=== PATIENT | female | born 1970 | race Two or more races ===

== ENCOUNTER 2024-07-06 18:39 | Inpatient (IN) | payer OTHER, SELFPAY ==
[2024-07-06 18:41] VITALS: BMI 46.7
[2024-07-06 20:02] VITALS: BP 151/90; PULSE 89; RESP 20; TEMP 36.9; O2SAT 98
--- NOTE | 2024-07-06 20:17 | XR_ITS ---
Examination: CT abdomen with intravenous contrast CT pelvis with intravenous contrast 2-D coronal reconstructions 2-D sagittal reconstructions Date and time of exam:July 06, 2024 10:40 PM INDICATIONS: Epigastric pain today. CTDI: vol (mGy) 17.1 DLP: (mGycm) 1020 Technique: Multiple axial sections of the abdomen and pelvis have been obtained. 64 slice high-resolution scanner used. 3 mm axial sections have been obtained, post intravenous injection 60 cc [id number] 2-D sagittal, coronal reconstructions obtained. Low dose protocols were performed. One or more of the following dose reduction techniques were used; automated exposure control, adjustment of the mA and/or KV according to patient size, use of iterative reconstruction technique. Findings: No focal liver or splenic lesion No gallstones No pancreatic or adrenal mass No renal or ureteral calculi Multiple fluid distended small bowel loops with small bowel in a 7 cm umbilical hernia defect which appears partially incarcerated Normal appendix Bilateral intact IMPRESSION: Small bowel obstruction secondary to small bowel in a umbilical hernia defect which appears partially incarcerated
--- NOTE | 2024-07-06 20:18 | PD.EDRME ---
Rapid Medical Screening Exam [facility] Arrival date/time: 07/06/24 18:39 53F with history of HTN, DM and incarcerated hernia repair presents to ED with 2 days of epigastric pain and N/V. Pain starts after she eats. Chief Complaint: Abdominal Pain Vital signs: Vital Signs Temperature 98.4 F 07/06/24 20:02 Pulse Rate 89 07/06/24 20:02 Respiratory Rate 20 07/06/24 20:02 Blood Pressure 151/90 H 07/06/24 20:02 Pulse Oximetry (%) 98 07/06/24 20:02 Oxygen Delivery Method Room Air 07/06/24 20:02
[2024-07-06 20:43] LABS: Collection Type, Urine Clean Catch
[2024-07-06 20:44] LABS: Lactate (Lactic Acid) 1.8 mMol/L (0.4-2.0)
[2024-07-06 20:50] LABS: Basophils % (Auto) 0 % (0-2.5); Eosinophils # (Auto) 0.2 Thou/mm3 (0.0-0.5); Eosinophils % (Auto) 3 % (0-10); Hematocrit 45.5 % (36.0-46.0); Hemoglobin 15.1 g/dL (12.0-16.0); Immature Granulocytes % (Auto) 0 % (0-0); Immature Granulocytes Auto 0.02 Thou/mm3 (0.00-0.00); Lymphocytes # (Auto) 2.4 Thou/mm3 (1.0-4.8); Lymphocytes % (Auto) 31 % (10-50); Mean Corpuscular HGB Conc 33.2 g/dl (31.0-37.0); Mean Corpuscular Hemoglobin 28.5 pg (25.0-35.0); Mean Corpuscular Volume 86 fL (80-100); Monocytes # (Auto) 0.4 Thou/mm3 (0.0-0.8); Monocytes % (Auto) 5 % (0-12); Neutrophils # (Auto) 4.8 Thou/mm3 (1.8-7.7); Neutrophils % (Auto) 61 % (37-80); Nucleated Red Blood Cell % 0 /100 WBC (0); Platelet Count 317 Thou/mm3 (140-440); RDW Standard Deviation 39.3 fL (36.4-46.3); White Blood Count 7.8 Thou/mm3 (3.6-11.0)
[2024-07-06] MEDS: FAMOTIDINE 20 MG TABLET 40 MG PO (20:54)
[2024-07-06] MEDS: ONDANSETRON ODT 4 MG TABRAP PO (20:54)
[2024-07-06] MEDS: MG HYD/AL HYD/SIME (Maalox Reg) SUSP 30 ML UDC PO (20:55)
[2024-07-06 21:06] LABS: Bilirubin,Urine Negative (Negative); Blood,Urine Negative (Negative); Clarity,Urine Clear (Clear/Hazy); Color,Urine Lt-Yellow (Lt Yel-Yel); Glucose, Urine 4+ (Negative); Ketones,Urine Negative (Negative); Leukocyte Esterase,Urine Negative (Negative); Nitrite,Urine Negative (Negative); Protein,Urine Trace (Neg - Trace); RBC,Urine 3 /hpf (0-3); Squamous Epithelial Cell,Urine 7 /hpf (0-5); Urobilinogen,Urine Negative mg/dL (0.0-1.0); WBC,Urine 1 /hpf (0-5)
[2024-07-06 22:24] LABS: Alanine Aminotransferase 19 U/L (10-49); Albumin, Serum 4.4 gm/dL (3.5-5.0); Albumin/Globulin Ratio 1.5 (1.2-2.2); Alkaline Phosphatase 99 U/L (46-116); Anion Gap 14 (7-16); Aspartate Amino Transferase 11 U/L (0-34); BUN/Creatinine Ratio 17 Ratio (12-20); Bilirubin,Total 0.4 mg/dL (0.3-1.2); Blood Urea Nitrogen 12 mg/dL (9-23); Calcium 9.2 mg/dL (8.3-10.6); Calcium (Corrected) 9.2 mg/dL (8.5-10.1); Carbon Dioxide 25.4 mMol/L (20.0-31.0); Chloride 101 mMol/L (98-107); Creatinine (Component) 0.7 mg/dL (0.6-1.3); Glucose 207 mg/dL (74-106); Lipase 39 U/L (12-53); Osmolality,Calculated 285 (275-295); Sodium 140 mMol/L (136-145); Total Protein 7.4 gm/dL (5.7-8.2); eGFR > 60 See Note
[2024-07-07] VITALS (8 sets, daily range): BP systolic 125–170; BP diastolic 73–102; PULSE 70–84; RESP 15–20; TEMP 36.1–37.1; O2SAT 93–97; BMI 46.7
[2024-07-07] MEDS: fentaNYL CIT INJ 50 mCg/ML AMP 2ML 100 MCG IVP (00:34)
--- NOTE | 2024-07-07 02:09 | PC.NURSE ---
Pt to room 6 at this time from E; assumed care.
--- NOTE | 2024-07-07 02:19 | PD.EDABDPN ---
ED Abdominal Pain RME/HPI General Chief Complaint: Abdominal Pain Stated complaint: abdominal pain, NV Arrival date/time: 07/06/24 18:39 Source: patient Mode of arrival: ambulatory Limitations: no limitations RME / HPI RME / HPI narrative: 07/06/24 18:39 53F with history of HTN, DM and incarcerated hernia repair presents to ED with 2 days of epigastric pain and N/V. Pain starts after she eats. Dr. Hsieh?s Main ED Evaluation: 53-year-old female with a past medical history of type 2 diabetes mellitus, hypertension, hyperlipidemia, and prior incarcerated hernia repair secondary to small bowel obstruction approximately two years ago at [facility], presents with worsening epigastric pain. She reports associated nausea and one episode of non-bilious, non-bloody emesis both yesterday and earlier today. Pain is exacerbated after eating. She seeks evaluation due to concern for possible recurrence related to her prior hernia repair. Patient states she has not followed up with the surgeon from her previous surgery. Related Data Home Medications ?Medication ?Instructions ?Recorded ?Confirmed allopurinol 100 mg tablet 100 mg PO DAILY Gout ##0 10/31/11 potassium chloride 10 mEq 10 meq PO QDAY ##0 10/31/11 tablet,extended release(part/cryst) (Klor-Con M) simvastatin 20 mg tablet 20 mg PO HS CHOLESTROL ##0 10/31/11 METFORMIN HCL (METFORMIN HCL ER) 500 mg PO BIDAC DIABETES ##0 06/14/13 baclofen 10 mg tablet 10 mg PO TID #0 tabs 06/14/13 docusate sodium 100 mg capsule 100 mg PO BID CONSTIPATION ##0 06/14/13 (Doc-Q-Lace) duloxetine 30 mg capsule,delayed 30 mg PO BID #0 caps 06/14/13 release (Cymbalta) albuterol sulfate 90 mcg/actuation 2 puff inhalation Q6HR PRN 09/29/13 aerosol inhaler (Ventolin HFA) SHORTNESS OF BREATH OR WHEEZE #0 puffs beclomethasone dipropionate 80 1 puff inhalation BID ASTHMA #0 03/16/14 mcg/actuation aerosol inhaler puffs (Qvar) furosemide 20 mg tablet (Lasix) 20 mg PO QDAY WATER #0 tabs 12/04/14 insulin lispro 100 unit/mL 100 unit subcut TID DIABETES #0 03/16/14 subcutaneous solution (Humalog vials U-100 Insulin) Fluticasone/Salmeterol DISKUS * 1 puff inhalation BID ASTHMA #0 07/02/14 (ADVAIR DISKUS 500/50 *) puffs dimethyl fumarate 240 mg 240 mg PO BID ##0 07/02/14 capsule,delayed release (Tecfidera) OXYGEN ##0 09/01/14 lisinopril 20 mg tablet 20 mg PO QDAY High Blood Pressure 09/01/14 #0 tabs Previous Rx's ?Medication ?Instructions ?Recorded diclofenac sodium 50 mg 50 mg PO TIDWM ##90 07/06/14 tablet,delayed release insulin glargine 100 unit/mL 50 unit (0.5 mL) subcut HS 07/06/14 subcutaneous solution (Lantus DIABETES #3 vials U-100 Insulin) montelukast 10 mg tablet 10 mg PO HS #30 tabs 07/06/14 (Singulair) ropinirole 1 mg tablet (Requip) 1 mg PO HS #30 tabs 07/06/14 PROMETHAZINE/CODEINE (Phenergan 1 - 2 tsp PO q4-6h prn ##180 09/01/14 W/Cod Syrup) ACETAMINOPHEN (Tylenol Tab) 650 mg PO Q4HR PRN PAIN OR FEVER > 09/22/14 101 #100 tabs Insulin Syringe * packet ##1 09/22/14 aspirin 325 mg tablet 325 mg PO HS #30 tabs 09/22/14 insulin glargine 100 unit/mL 10 unit (0.1 mL) subcut QAM #4 09/22/14 subcutaneous solution (Lantus vials U-100 Insulin) insulin glargine 100 unit/mL 55 unit (0.55 mL) subcut HS #4 09/22/14 subcutaneous solution (Lantus vials U-100 Insulin) insulin regular human 100 unit/mL 0 unit (0 mL) subcut ACHS #4 units 09/22/14 injection solution (Novolin R Regular U-100 Insulin) Allergies Allergy/AdvReac Type Severity Reaction Status Date / Time morphine Allergy Mild RASH Verified 09/01/14 16:06 FIG TREE AdvReac Severe Swelling Uncoded 09/01/14 16:06 Review of Systems Review of Systems Systems Reviewed: All systems reviewed, normal except as documented Past Medical History Past Medical History CARDIAC: Negative Cardiac Disorders RESPIRATORY: Positive Asthma GENITOURINARY: Negative Renal Disease ENDOCRINE: Positive Diabetes Mellitus Type 2 HEMATOLOGIC: Negative Sickle Cell Disease Social History SMOKING STATUS: Never smoker ED Exam General Limitations: Present no limitations General appearance: Present alert and in no apparent distress Head Head exam: Present atraumatic Eye Eye exam: Present normal appearance, PERRL and EOMI ENT ENT exam: Present normal exam, normal oropharynx and mucous membranes moist Neck Neck exam: Present normal inspection, full ROM and trachea midline Chest Chest inspection: Present normal inspection and symmetric chest wall rise Respiratory Respiratory exam: Present normal lung sounds bilaterally Cardiovascular Cardiovascular exam: Present regular rate, normal rhythm and normal heart sounds Abdominal Exam Abdominal exam: Present soft and normal bowel sounds Extremities Exam Extremities exam: Present normal inspection and full ROM Back Exam Back exam: Present normal inspection and full ROM Neurological Exam Neurological exam: Present alert, oriented X3 and CN II-XII intact Psychiatric Psychiatric exam: Present normal affect and normal mood Skin Skin exam: Present warm, dry, intact and normal color Course Quality Measures none Orders Category Date Time Status CT Screening NOW Care 07/06/24 20:18 Active Insert IV NOW Care 07/06/24 20:17 Active NPO NOW Care 07/07/24 00:24 Active Diet NPO (NOW) Diet 07/07/24 00:[address] abdomen pelvis w con Stat Exams 07/06/24 20:17 Completed CBC Stat Lab 07/06/24 20:28 Completed CMP [Comprehensive Metabolic Panel] Stat Lab 07/06/24 20:28 Completed Lactate (Lactic Acid) Stat Lab 07/06/24 20:28 Completed Lipase Stat Lab 07/06/24 20:28 Completed UA [Urinalysis] Stat Lab 07/06/24 20:39 Completed Famotidine [Pepcid] Med 07/06/24 20:18 Discontinued 40 mg PO X1 ONE Ondansetron Odt [Zofran Odt] Med 07/06/24 20:18 Discontinued 4 mg PO X1 ONE fentaNYL INJ [Sublimaze Inj] Med 07/07/24 00:24 Discontinued 100 mcg IVP X1 ONE fentaNYL INJ [Sublimaze Inj] Med 07/07/24 03:27 Discontinued 100 mcg IVP X1 ONE mg Hyd/Al Hyd/John Susp [Maalox Susp] Med 07/06/24 20:18 Discontinued 30 ml PO X1 ONE Vital Signs Vital signs: Vital Signs Temperature 98.4 F 07/06/24 20:02 Pulse Rate 89 07/06/24 20:02 Respiratory Rate 20 07/06/24 20:02 Blood Pressure 151/90 H 07/06/24 20:02 Pulse Oximetry (%) 98 07/06/24 20:02 Oxygen Delivery Method Room Air 07/06/24 20:02 Abdominal Pain MDM MDM Narrative MDM Narrative:: 0221 Dr. Glaser, general surgeon, made aware of the patient?s HPI, PMHx, lab and/or radiology results. Discussed treatment plan. Will attempt to reduce hernia. 0233 Case d/w hospitalist. Will attempt to reduce hernia. 0300 Hernia reduced. Case d/w hospitalist who accepts patient for admission. Scribe Attestation: I, Brendan Saul, am scribing for and in the presence of Dr. Hsieh. Provider Notation: Although this document has been carefully reviewed, there may still be some phonetic and other typographical errors. These errors are purely grammatical due to imperfections in the software program and should not be construed in any way to compromise the substance of the patient's medical care during this visit. Patient data External records reviewed:: [facility] previous records Clinical information provided by:: patient Social determinants that could affect healthcare access:: none Patient has the following chronic illnesses:: HLD, HTN, DM2, prior incarcerated hernia repair secondary to small bowel obstruction How is presenting disease/condition affected by chronic disease/condition?: uneffected by Evaluation data The following diagnostics were reviewed and interpreted by me:: lab results and radiology exam(s) Lab and/or radiology exams considered but not ordered:: na Interpretation Summary: Examination: CT abdomen with intravenous contrast CT pelvis with intravenous contrast Date and time of exam:July 06, 2024 10:40 PM INDICATIONS: Epigastric pain today. Findings: No focal liver or splenic lesion No gallstones No pancreatic or adrenal mass No renal or ureteral calculi Multiple fluid distended small bowel loops with small bowel in a 7 cm umbilical hernia defect which appears partially incarcerated Normal appendix Bilateral intact IMPRESSION: Small bowel obstruction secondary to small bowel in a umbilical hernia defect which appears partially incarcerated Dictated By: Delvin Hadley MD Medications / Prescriptions Medications or Prescriptions considered but not ordered:: na Medication administrations:: Medication Administration History Dextrose (Dextrose 50%-Water Inj 50 Ml Syringe) 25 ml IV Q15MIN PRN PRN Reason: BG 50-70 responsive npo pt Stop: 08/06/24 04:03 Dextrose (Dextrose 50%-Water Inj 50 Ml Syringe) 50 ml IV Q15MIN PRN PRN Reason: BG <50 OR BG <70 & pt unresponsive Stop: 08/06/24 04:03 Glucagon (Glucagon Inj 1 Mg Vial) 1 mg IM Q15MIN PRN PRN Reason: BG <70, and no IV access Hydromorphone HCl (Hydromorphone Inj 2 Mg/Ml Vial) 1 mg IVP Q2H PRN PRN Reason: PAIN Stop: 07/12/24 04:00 Sodium Chloride (Ns) 1,000 mls @ 120 mls/hr IV .Q8H20M [facility] Stop: 08/06/24 04:26 Last Admin: 07/07/24 04:44 Dose: 120 mls/hr Documented By: KG Insulin Glargine (Insulin Glargine (Lantus) 5 Unit/0.05 Ml (Per 5 Units)) 20 unit SC QDAY [facility] Stop: 08/06/24 08:59 Insulin Human Regular (Insulin Hum Regular 1 Unit/0.01 Ml (Per Unit)) 0 unit SC [facility]; Protocol Stop: 08/06/24 07:29 Pantoprazole Sodium (Pantoprazole Inj 40 Mg Vial) 40 mg IVP QDAY [facility] Stop: 08/06/24 08:59 Discontinued Medications Al Hydrox/Mg Hydrox/Simethicone (Mg Hyd/Al Hyd/John (Maalox Reg) Susp 30 Ml Udc) 30 ml PO X1 ONE Stop: 07/06/24 20:19 Last Admin: 07/06/24 20:55 Dose: 30 ml Documented By: JEFF Enoxaparin Sodium (Enoxaparin Sod Inj 40 Mg/0.4 Ml Syringe) 40 mg SC QDAY [facility] Stop: 07/21/24 08:59 Famotidine (Famotidine 20 Mg Tablet) 40 mg PO X1 ONE Stop: 07/06/24 20:19 Last Admin: 07/06/24 20:54 Dose: 40 mg Documented By: MP Fentanyl Citrate (Fentanyl Cit Inj 50 Mcg/Ml Amp 2ml) 100 mcg IVP X1 ONE Stop: 07/07/24 00:25 Last Admin: 07/07/24 00:34 Dose: 100 mcg Documented By: KG Fentanyl Citrate (Fentanyl Cit Inj 50 Mcg/Ml Amp 2ml) 100 mcg IVP X1 ONE Stop: 07/07/24 03:28 Last Admin: 07/07/24 05:33 Dose: Not Given Documented By: KG Non-Admin Reason: Discontinued Fentanyl Citrate (Fentanyl Cit Inj 50 Mcg/Ml Amp 2ml) 50 mcg IV X1 ONE Stop: 07/07/24 04:10 Last Admin: 07/07/24 04:25 Dose: 50 mcg Documented By: KG Sodium Chloride (Ns) 1,000 mls @ 75 mls/hr IV .[id number] [facility] Stop: 08/06/24 04:14 Last Admin: 07/07/24 05:33 Dose: Not Given Documented By: KG Non-Admin Reason: Discontinued Ondansetron HCl (Ondansetron Odt 4 Mg Tabrap) 4 mg PO X1 ONE; Protocol Stop: 07/06/24 20:19 Last Admin: 07/06/24 20:54 Dose: 4 mg Documented By: MP as above Consultations Consultation(s) initiated? (list below): Yes Consultation #1 (Physician, Specialty, Details): see narrative Diagnosis Differential diagnosis abdominal pain: abdominal pain, acute appendicitis and small bowel obstruction Most likely diagnosis given after review of the tests above:: see clinical impression below Admission Indicated Admission indicated?: indicated Admission Request Was there a request for admission?: Yes Admission Attestation Admission request attestation: Discussed case with [] from Hospitalist service regarding admission. Discussed patients ED course, exam findings, labs, and radiology results. The Hospitalist [agrees,declines] to accept the patient for admission. Disposition Plan Disposition Plan: Admit Discharge Plan Plan Patient Disposition: Admit Acute Care w/in Hospital Patient condition on transfer: Stable Problem List Clinical Impression: SBO (small bowel obstruction), Hx of hernia repair
--- NOTE | 2024-07-07 02:19 | PC.NURSE ---
Dr. Hsieh at the bedside.
--- NOTE | 2024-07-07 03:58 | PC.NURSE ---
Dr. Dorsey at the bedside.
--- NOTE | 2024-07-07 04:08 | PD.EVENT ---
Documentation for date of: 07/07/24 Event Note Event Note: A 53-year-old female presented to the ER with the chief complaint of abdominal pain. She reported worsening epigastric pain beginning yesterday morning, accompanied by nausea and one episode of non-bilious, non-bloody emesis both yesterday and earlier today. The pain intensified after eating and was described as severe, with episodes that felt like tearing internally. She had attempted symptomatic relief at home with [id number] medications including Pepto-Bismol and Tums, without improvement. She also reported abdominal bloating and persistent discomfort, prompting concern for recurrence of her prior hernia. The patient has a history of DM, HTN, HLD, and prior incarcerated hernia repair for SBO approximately two years ago, during which her umbilical hernia was surgically repaired without mesh via tissue overlap. She has undergone four abdominal surgeries in total. Social history includes no tobacco, alcohol, or recreational drug use. In the ER, vital signs recorded as temp 98.4 F, HR 89, RR 20, BP 151/90 mmHg. GCS was 15. BMI was 46. The pain was significant enough to require fentanyl administration in the ER. Lab revealed WBC 7.8, Hb 15.1, Plt 317, Na 140, K 4, BUN 12, Creatinine 0.7, Glucose 207 (H), Lactic Acid 1.8. CT demonstrated small bowel obstruction secondary to small bowel in an umbilical hernia defect, which appeared partially incarcerated. Surgery was consulted, bedside reduction was performed, and the patient was admitted for further management.
[2024-07-07] MEDS: fentaNYL CIT INJ 50 mCg/ML AMP 2ML IV (04:25)
--- NOTE | 2024-07-07 04:29 | ESHP_ITS ---
Documentation for date of: 07/07/24 HPI History of Present Illness Chief complaint: Abdominal Pain for one day History of present illness: HPI: A 53-year-old female patient with past medical history of hypertension, hyperlipidemia, diabetes mellitus, morbid obesity, multiple sclerosis, was brought to the ED due to of abdominal pain that started yesterday. Patient reported that she tried to drink water however she started to feel severe colicky abdominal pain. She reported also that her abdomen gradually started to become distended. She also mentioned that she had 2 episodes of vomiting nonbilious and nonbloody. At that time she was not able to eat or drink because of the pain as it worsened by eating. Today patient symptoms continue to worsen and was not able to eat or drink for that reason patient came to the ED. She reported that she had similar symptoms 2 years ago in which she had bowel obstruction because of hernia at the same location in which it was repaired in [facility]. Patient reported that she is able to pass gas and her last bowel movement was yesterday and which was smaller amount than usual. Patient denied any fever, chills, and denied any dysuria or frequency. Home medications: Insulin, metformin, Jardiance, Ozempic, Hydralazine, ED course:On presentation patient blood pressure was 151/90, pulse rate of 89, her labs all within normal limits except blood sugar was 207, her serum creatinine is normal at 0.7, urinalysis was significant for specific gravity of 1040, and urine glucose of 4+, abdominal CT showed small bowel obstruction secondary to small bowel and the umbilical hernia defect appears to be partially incarcerated. The general surgeon Dr. Glaser was consulted he recommended to insert NG tube with low intermittent suction to help decompress the abdomen and he will reevaluate the patient. PMH:As above Social hx: Alcohol: Denied Tobacco: Denied Illicit drugs: Denied Allergies: Morphine Review of Systems Review of Systems Systems Reviewed: All systems reviewed, normal except as documented Exam Vital Signs Temp Pulse Resp BP Pulse Ox O2 Del Method 98.4 F 89 20 151/90 H 98 Room Air 07/06/24 20:02 07/06/24 20:02 07/06/24 20:02 07/06/24 20:02 07/06/24 20:02 07/06/24 20:02 Narrative Exam GEN: AOx3, appears to be morbidly obese, able to speak full sentences, appears to be in mild distress HEENT: NC/AC, oral mucosa moist, neck supple CVS: RRR, S1-S2 present, no murmurs appreciated RESP: CTAB GI: soft, however it is distended, significant abdominal wall hernia in the lower third of the midline, bulging increase significantly with the patient asked to cough, bowel sounds heard on the hernial area. No tenderness or skin changes. 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 Results: Labs 07/06/24 20:28 07/06/24 20:28 Labs: Short CBC 07/06/24 Range/Units 20:28 WBC 7.8 (3.6-11.0) Thou/mm3 Hgb 15.1 (12.0-16.0) g/dL Hct 45.5 (36.0-46.0) % Plt Count 317 (140-440) Thou/mm3 BMP 07/06/24 20:28 Sodium 140 Potassium 4.0 Chloride 101 Carbon Dioxide 25.4 BUN 12 Creatinine 0.7 Glucose 207 H Calcium 9.2 Liver Function 07/06/24 Range/Units 20:28 Total Bilirubin 0.4 (0.3-1.2) mg/dL AST 11 (0-34) U/L ALT 19 (10-49) U/L Alkaline Phosphatase 99 (46-116) U/L Albumin 4.4 (3.5-5.0) gm/dL Urine 07/06/24 Range/Units 20:39 Urine Color Lt-Yellow (Lt Yel-Yel) Urine Clarity Clear (Clear/Hazy) Urine pH 6.0 (5.0-7.0) Ur Specific [place] 1.040 H (1.001-1.035) Urine Protein Trace (Neg - Trace) Urine Glucose (UA) 4+ A (Negative) Quality Measures Quality Measures none Medications Home Medications and Allergies Home Medications ?Medication ?Instructions ?Recorded ?Confirmed ?Type allopurinol 100 mg tablet 100 mg PO DAILY Gout ##0 01/04 History potassium chloride 10 mEq 10 meq PO QDAY ##0 10/31/11 History tablet,extended release(part/cryst) (Klor-Con M) simvastatin 20 mg tablet 20 mg PO HS CHOLESTROL ##0 0 10/31/11 History METFORMIN HCL (METFORMIN HCL ER) 500 mg PO BIDAC DIABE DAGO ##0 06/14/13 History baclofen 10 mg tablet 10 mg PO TID #0 tabs 4 History docusate sodium 100 mg capsule 100 mg PO BID CONSTIPAT ION ##0 06/14/13 History (Doc-Q-Lace) duloxetine 30 mg capsule,delayed 30 mg PO BID #0 caps 06/14/13 History release (Cymbalta) albuterol sulfate 90 mcg/actuation 2 puff inhalation Q 6HR PRN 09/29/13 History aerosol inhaler (Ventolin HFA) SHORTNESS OF BREATH OR WHEEZE #0 puffs beclomethasone dipropionate 80 1 puff inhalation BID A STHMA #0 03/16/14 History mcg/actuation aerosol inhaler puffs (Qvar) furosemide 20 mg tablet (Lasix) 20 mg PO QDAY WATER #0 tabs 03/16/14 History insulin lispro 100 unit/mL 100 unit subcut TID DIABETE S #0 03/16/14 History subcutaneous solution (Humalog vials U-100 Insulin) Fluticasone/Salmeterol DISKUS * 1 puff inhalation BID ASTHMA #0 07/02/14 History (ADVAIR DISKUS 500/50 *) puffs dimethyl fumarate 240 mg 240 mg PO BID ##0 07/02/14 History capsule,delayed release (Tecfidera) OXYGEN ##0 09/01/14 History lisinopril 20 mg tablet 20 mg PO QDAY High Blood Pre ssure 09/01/14 History #0 tabs Allergies Allergy/AdvReac Type Severity Reaction Status Date / Time morphine Allergy Mild RASH Verified 09/01/14 16:06 FIG TREE AdvReac Severe Swelling Uncoded 09/01/14 16:06 Visit Medications Dextrose (Dextrose 50%-Water Inj 50 Ml Syringe) 25 ml IV Q15MIN PRN PRN Reason: BG 50-70 responsive npo pt Stop: 08/06/24 04:03 Dextrose (Dextrose 50%-Water Inj 50 Ml Syringe) 50 ml IV Q15MIN PRN PRN Reason: BG <50 OR BG <70 & pt unresponsive Stop: 08/06/24 04:03 Enoxaparin Sodium (Enoxaparin Sod Inj 40 Mg/0.4 Ml Syringe) 40 mg SC QDAY [facility] Stop: 07/21/24 08:59 Glucagon (Glucagon Inj 1 Mg Vial) 1 mg IM Q15MIN PRN PRN Reason: BG <70, and no IV access Hydromorphone HCl (Hydromorphone Inj 2 Mg/Ml Vial) 1 mg IVP Q2H PRN PRN Reason: PAIN Stop: 07/12/24 04:00 Sodium Chloride (Ns) 1,000 mls @ 120 mls/hr IV .Q8H20M [facility] Stop: 08/06/24 04:26 Insulin Glargine (Insulin Glargine (Lantus) 5 Unit/0.05 Ml (Per 5 Units)) 20 unit SC QDAY [facility]1983 Stop: 08/06/24 08:59 Insulin Human Regular (Insulin Hum Regular 1 Unit/0.01 Ml (Per Unit)) 0 unit SC AC [facility], [facility]; Protocol Stop: 08/06/24 07:29 Discontinued Medications Al Hydrox/Mg Hydrox/Simethicone (Mg Hyd/Al Hyd/John (Maalox Reg) Susp 30 Ml Udc) 30 ml PO X1 ONE Stop: 07/06/24 20:19 Last Admin: 07/06/24 20:55 Dose: 30 ml Famotidine (Famotidine 20 Mg Tablet) 40 mg PO X1 ONE Stop: 07/06/24 20:19 Last Admin: 07/06/24 20:54 Dose: 40 mg Fentanyl Citrate (Fentanyl Cit Inj 50 Mcg/Ml Amp 2ml) 100 mcg IVP X1 ONE Stop: 07/07/24 00:25 Last Admin: 07/07/24 00:34 Dose: 100 mcg Fentanyl Citrate (Fentanyl Cit Inj 50 Mcg/Ml Amp 2ml) 100 mcg IVP X1 ONE Stop: 07/07/24 03:28 Fentanyl Citrate (Fentanyl Cit Inj 50 Mcg/Ml Amp 2ml) 50 mcg IV X1 ONE Stop: 07/07/24 04:10 Sodium Chloride (Ns) 1,000 mls @ 75 mls/hr IV .[id number] [facility] Stop: 08/06/24 04:14 Ondansetron HCl (Ondansetron Odt 4 Mg Tabrap) 4 mg PO X1 ONE; Protocol Stop: 07/06/24 20:19 Last Admin: 07/06/24 20:54 Dose: 4 mg Assessment & Plan Plan Summary:A 53-year-old female patient with past medical history of hypertension, hyperlipidemia, diabetes mellitus, morbid obesity, multiple sclerosis, was brought to the ED due to of abdominal pain that started yesterday. Patient reported that she tried to drink water however she started to feel severe colicky abdominal pain. She reported also that her abdomen gradually started to become distended. She also mentioned that she had 2 episodes of vomiting nonbilious and nonbloody. Patient was admitted for management of SBO secondary to possibly incarcerated hernia Assessment and plan #SBO most likely secondary to partially incarcerated hernia #Partially incarcerated hernia? Patient presented with abdominal pain, nausea, vomiting, lower abdominal bulge increased with coughing in the midline. Patient has history of SBO secondary to incarcerated hernia 2 years ago at the same location which was repaired surgically. Vitally patient is stable Abdomen/pelvis CT showed small bowel obstruction secondary to small bowel and the umbilical hernia defect appears to be partially incarcerated. Plan ? Admit patient to MedSurg ? Surgical consultation to Dr. Glaser was ordered, recommendations appreciated ? Insert NG tube for low intermittent suction ? N.p.o. ? Pain management as per protocol ? IV fluids NS 120 mL/h ? Coagulation panel in anticipation for possible need of surgery ? Zofran 4 mg IV every 6 hours as needed #History of diabetes mellitus Patient reported that she is taking 60 international units of long-acting insulin Plan ? Start the patient on insulin glargine 20 international unit daily ? Start the patient on insulin sliding scale ? Hypoglycemia protocol in place ? A1c level #History of hypertension Plan ? Resume home medication after med reconciliation whenever clinically appropriate #History of multiple sclerosis in remission Patient reported that she was diagnosed with multiple sclerosis 2000 she has been following up with a neurologist in [place]. Patient was recently moved to the [facility] she mentions that she has not seen a neurologist for the past 2 years Plan ? Continue to monitor symptoms ? Follow-up in outpatient settings Hospital Maintenance: FEN: N.p.o. DVT ppx: SCD GI ppx: Protonix IV lines: PIV Elise: None Code status: Full code Dispo: MedSur Patient's plan and care discussed with my attending, Dr. Willian Restrepo MD Internal Medicine PGY-2 Attending Provider Attestation/Addendum Pt was evaluated and plan formulated together with the housestaff team. I have reviewed the residents note above and agree with most of its content. Please refer to the residents note for additional details.
[2024-07-07] MEDS: SODIUM CHLORIDE 0.9% 1000 ML 1,000 ML 120 ML IV ×2 (04:44→15:27)
--- NOTE | 2024-07-07 04:44 | XR_ITS ---
Examination: AP chest single view TECHNIQUE: AP portable upright chest single view Exam date and time: July 07, 2024 0451 hours INDICATIONS: Post orogastric tube placement FINDINGS: Orogastric tube in the stomach satisfactory position Mild prominence of ventricle Mild vascular congestion IMPRESSION: Orogastric tube in the stomach satisfactory position
[2024-07-07 05:31] LABS: Basophils % (Auto) 0 % (0-2.5); Eosinophils # (Auto) 0.2 Thou/mm3 (0.0-0.5); Eosinophils % (Auto) 2 % (0-10); Hematocrit 43.8 % (36.0-46.0); Hemoglobin 14.6 g/dL (12.0-16.0); Immature Granulocytes % (Auto) 0 % (0-0); Immature Granulocytes Auto 0.02 Thou/mm3 (0.00-0.00); Lymphocytes % (Auto) 39 % (10-50); Mean Corpuscular HGB Conc 33.3 g/dl (31.0-37.0); Mean Corpuscular Hemoglobin 28.6 pg (25.0-35.0); Mean Corpuscular Volume 86 fL (80-100); Monocytes # (Auto) 0.4 Thou/mm3 (0.0-0.8); Monocytes % (Auto) 6 % (0-12); Neutrophils # (Auto) 4.2 Thou/mm3 (1.8-7.7); Neutrophils % (Auto) 53 % (37-80); Nucleated Red Blood Cell % 0 /100 WBC (0); Platelet Count 309 Thou/mm3 (140-440); RDW Standard Deviation 38.8 fL (36.4-46.3); White Blood Count 7.9 Thou/mm3 (3.6-11.0)
[2024-07-07 06:17] LABS: Anion Gap 10 (7-16); BUN/Creatinine Ratio 18 Ratio (12-20); Blood Urea Nitrogen 11 mg/dL (9-23); Calcium 9.1 mg/dL (8.3-10.6); Carbon Dioxide 27.5 mMol/L (20.0-31.0); Chloride 102 mMol/L (98-107); Creatinine (Component) 0.6 mg/dL (0.6-1.3); Estimated Creatinine Clearance 129.5 mL/min (>60); Glucose 170 mg/dL (74-106); Osmolality,Calculated 280 (275-295); Potassium 3.9 mMol/L (3.4-5.1); Sodium 139 mMol/L (136-145); eGFR > 60 See Note
[2024-07-07 06:50] LABS: Partial Thromboplastin Time 28.6 Seconds (22.0-36.0); Prothrombin Time 10.7 Seconds (9.0-12.2)
--- NOTE | 2024-07-07 07:03 | PD.SURCONS ---
HPI Consult details Consult date: 07/07/24 Reason for consultation narrative: Patient was seen for a possible incarcerated incisional hernia History of present illness: Patient started having pain and swelling in the lower abdomen where there was a hernia. This was repaired in [place] 2 years ago. She had 1 episode of vomiting but she had a normal bowel movement today Past Medical History Past Medical History CARDIAC: Negative Cardiac Disorders or Congestive Heart Failure RESPIRATORY: Positive Asthma; Negative Chronic Obstructive Pulmonary Disease (COPD) GENITOURINARY: Negative Renal Disease ENDOCRINE: Positive Diabetes Mellitus Type 2; Negative Diabetes Mellitus Type 1 HEMATOLOGIC: Negative Sickle Cell Disease Social History SMOKING STATUS: Never smoker Meds Home Medications and Allergies Home Medications ?Medication ?Instructions ?Recorded ?Confirmed ?Type allopurinol 100 mg tablet 100 mg PO DAILY Gout ##0 10/31/11 History potassium chloride 10 mEq 10 meq PO QDAY ##0 10/31/11 History tablet,extended release(part/cryst) (Klor-Con M) simvastatin 20 mg tablet 20 mg PO HS CHOLESTROL ##0 10/31/11 History METFORMIN HCL (METFORMIN HCL ER) 500 mg PO BIDAC DIABETES ##0 06/14/13 History baclofen 10 mg tablet 10 mg PO TID #0 tabs 06/14/13 History docusate sodium 100 mg capsule 100 mg PO BID CONSTIPATION ##0 06/14/13 History (Doc-Q-Lace) duloxetine 30 mg capsule,delayed 30 mg PO BID #0 caps 06/14/13 History release (Cymbalta) albuterol sulfate 90 mcg/actuation 2 puff inhalation Q6HR PRN 09/29/13 History aerosol inhaler (Ventolin HFA) SHORTNESS OF BREATH OR WHEEZE #0 puffs beclomethasone dipropionate 80 1 puff inhalation BID ASTHMA #0 03/16/14 History mcg/actuation aerosol inhaler puffs (Qvar) furosemide 20 mg tablet (Lasix) 20 mg PO QDAY WATER #0 tabs 03/16/14 History insulin lispro 100 unit/mL 100 unit subcut TID DIABETES #0 03/16/14 History subcutaneous solution (Humalog vials U-100 Insulin) Fluticasone/Salmeterol DISKUS * 1 puff inhalation BID ASTHMA #0 07/02/14 History (ADVAIR DISKUS 500/50 *) puffs dimethyl fumarate 240 mg 240 mg PO BID ##0 03/22/15 History capsule,delayed release (Tecfidera) OXYGEN ##0 09/01/14 History lisinopril 20 mg tablet 20 mg PO QDAY High Blood Pressure 09/01/14 History #0 tabs Allergies Allergy/AdvReac Type Severity Reaction Status Date / Time morphine Allergy Mild RASH Verified 09/01/14 16:06 FIG TREE AdvReac Severe Swelling Uncoded 09/01/14 16:06 Exam Vital Signs Temp Pulse Resp BP Pulse Ox O2 Del Method 98.8 F 81 18 125/88 H 97 Room Air 07/07/24 05:56 07/07/24 05:56 07/07/24 05:56 07/07/24 05:56 07/07/24 05:56 07/07/24 05:56 Narrative Exam Physical examination revealed normal vital signs Routine Abdominal Exam Comments: Abdomen showed swelling and a hernia over the umbilical region where the umbilicus has been removed from the past surgery. But there is no incarceration of the hernia and there is a large defect obviously due to recurrence Results Results: Laboratory Laboratory Narrative: Laboratory results are within normal limits Results: Imaging Imaging narrative: CT scan shows small bowel obstruction Assessment & Plan Additional Assessment Additional comments: Impression: Recurrent incisional hernia with no evidence of incarceration Plan Plan: I will treat the patient with IV fluids and bowel rest. She does not require surgery for this hernia which should be sent to higher level of care.
--- NOTE | 2024-07-07 07:23 | PC.NURSE ---
Received report from Emely MEDINA and assumed care of patient. Patient head lowered as requested and states pain 8/10. Patient is alert with GCS 15.
[2024-07-07] MEDS: HYDROmorphone INJ 2 MG/ML VIAL 1 MG IVP ×6 (07:39→23:19)
[2024-07-07] MEDS: INSULIN HUM REGULAR 1 UNIT/0.01 ML (PER UNIT) SC (09:23)
[2024-07-07] MEDS: PANTOPRAZOLE INJ 40 MG VIAL IVP (09:28)
--- NOTE | 2024-07-07 10:21 | PC.NURSE ---
PATIENT HEART RHYTHM WAS TORSADES UPON RN'S ARRIVAL TO ROOM THEN CONVERTED TO V-FIB. ER PROVIDER CALLED TO ROOM AND PATIENT WAS SHOCKED 200 JOULES AT 1018 AND COVERTED TO SINUS RHYTHM. ORDERS RECEIVED FOR AMIODERONE DRIP AND 4 MG MORPHINE IV BY ER PROVIDER..
--- NOTE | 2024-07-07 13:38 | ESPR_ITS ---
<Statement entered by Sana Riley MD - 07/08/24 07:45> Patient was seen and examined by me personally. I have directly supervised and reviewed documentation by the team resident and agree with its findings with any exceptions or additional findings as below. Plan of care was discussed with the attending, Dr. Culver. Sana Riley, PGY-2 Documentation for date of: 07/07/24 Subjective Subjective Interval history: 07/07/2024: Overnight admission for 53-year-old female with past medical history of insulin-dependent type 2 diabetes, hypertension, hyperlipidemia, MS in remission, umbilical hernia with strangulation and surgical management 2 years ago presenting with abdominal pain found to have partial SBO and admitted with NG tube on low intermittent suction. Patient seen and examined in the ED reporting persistent periumbilical tenderness. Dr. Glaser, general surgery, has seen the patient and recommends bowel rest and IV fluids; moreover, does not think surgical intervention is required at this time. Dr. Glaser does state that once the patient is stable she can then follow-up with higher level of care for the elective repair of the hernia. Will continue to monitor the patient and control pain with expected discharge next 24-48 hrs. Exam Vital Signs Temp Pulse Resp BP Pulse Ox O2 Del Method 98.2 F 80 16 131/81 H 94 L Room Air 07/07/24 13:01 07/07/24 13:01 07/07/24 13:01 07/07/24 13:01 07/07/24 13:01 07/07/24 13:01 Narrative Exam Physical Examination: GEN: Awake, appears to be morbidly obese, able to speak full sentences, appears to be in mild distress HEENT: NC/AC, oral mucosa moist, neck supple CVS: RRR, S1-S2 present, no murmurs appreciated RESP: CTAB GI: Abdomen obese, distended, tender to palpation around umbilical region, hypoactive bowel sounds MSK: able to move all 4 limbs, trace lower extremity edema SKIN: warm and dry BROOMMAKING SUPERVISOR: AOx3, CN II-XII and Sensation grossly intact. Objective Labs 07/07/24 04:45 07/07/24 04:45 Labs: Laboratory Results - last 24 hr 07/06/24 07/06/24 07/07/24 20:28 20:39 04:45 WBC 7.8 7.9 RBC 5.30 H 5.10 Hgb 15.1 14.6 Hct 45.5 43.8 MCV 86 86 MCH 28.5 28.6 MCHC 33.2 33.3 RDW Std Deviation 39.3 38.8 Plt Count 317 309 Neut % (Auto) 61 53 Lymph % (Auto) 31 39 [place] % (Auto) 5 6 Eos % (Auto) 3 2 Baso % (Auto) 0 0 Neut # (Auto) 4.8 4.2 Lymph # (Auto) 2.4 3.0 [place] # (Auto) 0.4 0.4 Eos # (Auto) 0.2 0.2 Baso # (Auto) 0.0 0.0 Immature Gran # (Auto) 0.02 H 0.02 H Absolute Nucleated RBC 0.00 0.00 Immature Gran % 0 0 Nucleated RBC % 0 0 PT 10.7 INR 1.0 APTT 28.6 Sodium 140 139 Potassium 4.0 3.9 Chloride 101 102 Carbon Dioxide 25.4 27.5 Anion Gap 14 10 BUN 12 11 Creatinine 0.7 0.6 Estim Creat Clear Calc 111.0 129.5 eGFR > 60 > 60 BUN/Creatinine Ratio 17 18 Glucose 207 H 170 H Calculated Osmolality 285 280 Lactic Acid 1.8 Calcium 9.2 9.1 Corrected Calcium 9.2 Total Bilirubin 0.4 AST 11 ALT 19 Alkaline Phosphatase 99 Total Protein 7.4 Albumin 4.4 Globulin 3.0 Albumin/Globulin Ratio 1.5 Lipase 39 Ur Collection Type Clean Catch Urine Color Lt-Yellow Urine Clarity Clear Urine pH 6.0 Ur Specific [place] 1.040 H Urine Protein Trace Urine Glucose (UA) 4+ A Urine Ketones Negative Urine Blood Negative Urine Nitrite Negative Urine Bilirubin Negative Urine Urobilinogen (Auto) Negative Ur Leukocyte Esterase Negative Urine RBC 3 Urine WBC 1 Ur Squamous Epith Cells 7 H Urine Bacteria None Quality Measures Quality Measures none Assessment & Plan Assessment Current Active Medications: Generic Name Dose Route Start Last Admin Trade Name Freq PRN Reason Stop Dose Admin Dextrose 25 ml 07/07/24 04:04 Dextrose 50%-Water Inj 50 Ml Syringe IV 08/06/24 04:03 Q15MIN PRN BG 50-70 responsive npo pt Dextrose 50 ml 07/07/24 04:04 Dextrose 50%-Water Inj 50 Ml Syringe IV 08/06/24 04:03 Q15MIN PRN BG <50 OR BG <70 & pt unresponsive Glucagon 1 mg 07/07/24 04:04 Glucagon Inj 1 Mg Vial IM Q15MIN PRN BG <70, and no IV access Hydromorphone HCl 1 mg 07/07/24 04:01 07/07/24 13:05 Hydromorphone Inj 2 Mg/Ml Vial IVP 07/12/24 04:00 1 mg Q2H PRN Administration PAIN Sodium Chloride 1,000 mls @ 120 mls/hr 07/07/24 04:28 07/07/24 04:44 Ns IV 08/06/24 04:26 120 mls/hr .Q8H20M DOLORES Administration Insulin Glargine 20 unit 07/07/24 21:00 Insulin Glargine (Lantus) 5 Unit/0.05 Ml (Per 5 Units) SC 08/06/24 20:59 HS DOLORES Insulin Human Lispro 0 unit 07/07/24 12:00 07/07/24 13:04 Insulin Lispro (Admelog) 1 Unit/0.01 Ml Unit SC 08/06/24 11:59 Not Given Q6HR [facility] Protocol Pantoprazole Sodium 40 mg 07/07/24 09:00 07/07/24 09:28 Pantoprazole Inj 40 Mg Vial IVP 08/06/24 08:59 40 mg QDAY DOLORES Administration Plan 53-year-old female patient with past medical history of hypertension, hyperlipidemia, diabetes mellitus, morbid obesity, multiple sclerosis, was brought to the ED due to of abdominal pain and found to have partial small bowel obstruction; moreover, patient started on NG tube with low intermittent suction, remains n.p.o. and general surgery has been consulted for recommendations. #Partial small bowel obstruction #Umbilical hernia Presented with abdominal pain, nausea, vomiting, lower abdominal bulge increased with coughing in the midline. Patient has history of SBO secondary to incarcerated hernia 2 years ago at the same location which was repaired surgically. Vitally patient is stable Abdomen/pelvis CT showed small bowel obstruction secondary to small bowel and the umbilical hernia defect appears to be partially incarcerated Dr. Glaser recommends bowel rest and IV fluids; moreover, there is no need for surgical intervention at this time Plan: General Surgery (Dr. Glaser) consulted, appreciate recommendations Continue NG tube for low intermittent suction N.p.o. Multimodal pain management Continue IV fluids NS 120 mL/h Zofran 4 mg IV every 6 hours as needed Once the patient is stable and ready for discharge, outpatient follow-up for the umbilical hernia repair #Insulin-dependent type 2 diabetes mellitus Patient reported that she is taking 60 international units of long-acting insulin No A1c on file Plan Continue insulin glargine 20 international unit daily SSI Follow-up with morning A1c #Hypertension Pending official med rec, unsure exactly what medications the patient takes at this time Plan: Will resume home medication after med reconciliation whenever clinically appropriate #History of multiple sclerosis in remission Patient reported that she was diagnosed with multiple sclerosis 2000 she has been following up with a neurologist in [place]. Patient was recently moved to the city she mentions that she has not seen a neurologist for the past 2 years Plan: Continue to monitor symptoms Follow-up in outpatient settings Hospital Management: Lines: PIV, NG tube Diet: N.p.o. Bowel: Rest GI prophylaxis: Protonix DVT prophylaxis: SCD Dispo: NG tube on low intermittent suction Code: Full Patient seen and examined with attending Dr. Culver and senior resident Dr. Rosemary Tidwell, PGY-1 Attending Provider Attestation/Addendum I attest that I was physically present for the evaluation, physical examination, lab and imaging review of the patient with the residents. I discussed the case with the residents and agree with the findings and plans of care as documented above. Patient is a 53 years old female with past medical history of hypertension, hyperlipidemia, diabetes, morbid obesity, multiple sclerosis who was admitted overnight for management of small bowel obstruction likely secondary to partially incarcerated hernia. Patient was started on NG tube with low intermittent suction, IV hydration and pain management. General surgery following, recommended medical management with IV fluid and bowel rest. Stated that surgery is not indicated at this time. At bedside, patient is states that her pain is manageable with analgesics. Denies any nausea unless her pain is severe. And the suction has minimal output. We will discuss with general surgery and start small bowel series. Ronda Culver MD
--- NOTE | 2024-07-07 14:15 | PC.CC ---
Patient is a 53 year-old female who presents to the hospital for SBO. Dania RODRIGUEZ made [id number] contact with patient. ASW introduced self, role, and reason for visit. Patient appeared alert and oriented to self, location, and situation. Patient was pleasant and engaged in initial assessment. Patient reports she lives at home with her , Mayo Scanlon . Per patient, if she is unable to make her own medical decisions her would be her medical decision maker. At home the patient uses a cane to ambulate but is able to complete her own ADLs. Patient does not use any oxygen at home. Patient receives primary care with Jitendra Davies and uses [facility] for prescription medications. Upon discharge the patient plans to return back home. emergency services professional to follow up with any discharge needs.
--- NOTE | 2024-07-07 15:38 | PC.NURSE ---
Report given to Pablo MEDINA
--- NOTE | 2024-07-07 17:46 | XR_ITS ---
Examination: Small bowel series Abdomen AP supine 4 views Exam date: July 08, 2024 at 0026 hours INDICATIONS: Abdominal pain and distention, small bowel obstruction pattern on CT abdomen and pelvis July 06, 2024 TECHNIQUE AND FINDINGS: AP portable supine abdomen intermediate shows contrast 120 cc Gastrografin in the stomach and duodenum AP portable supine films 30 minutes 1 hour 2 hours show contrast in distended small bowel loops There does appear to be contrast, however in the right colon on the two-hour film. IMPRESSION: Early films demonstrate small bowel obstruction which appears incomplete recommend follow-up KUB 6:00 AM 10:00 AM
--- NOTE | 2024-07-07 19:04 | XR_ITS ---
Examination: AP chest single view TECHNIQUE: AP upright portable chest single view Exam date and time: July 07, 2024 1908 hours Comparison July 07, 2024 1451 hours INDICATIONS: Reposition orogastric tube. FINDINGS: Orogastric tube in stomach satisfactory position Mild prominence left ventricle Suspicious for mild pneumonia left base IMPRESSION: Orogastric tube is slightly satisfactory position Suspicious for mild left base pneumonia
--- NOTE | 2024-07-07 22:29 | PC.NURSE ---
Called X-Ray to find out if bowel series will be done. Per Derrick Wallpaper Hanger, he is waiting for Dr. Hadley to clarify results of X-ray done to confirm placement/position of NG tube.
[2024-07-08] VITALS (7 sets, daily range): BP systolic 133–180; BP diastolic 80–105; PULSE 70–91; RESP 17–19; TEMP 36.1–36.6; O2SAT 93–96; BMI 47.1
[2024-07-08] MEDS: SODIUM CHLORIDE 0.9% 1000 ML 1,000 ML 120 ML IV ×2 (00:28→12:26)
--- NOTE | 2024-07-08 05:40 | PC.NURSE ---
Per Derrick, rfid technician, bowel series is ongoing and said he'll let nurse know when it is done.
[2024-07-08 06:38] LABS: Basophils % (Auto) 0 % (0-2.5); Eosinophils # (Auto) 0.2 Thou/mm3 (0.0-0.5); Eosinophils % (Auto) 3 % (0-10); Hematocrit 41.1 % (36.0-46.0); Hemoglobin 13.8 g/dL (12.0-16.0); Immature Granulocytes % (Auto) 0 % (0-0); Immature Granulocytes Auto 0.03 Thou/mm3 (0.00-0.00); Lymphocytes # (Auto) 2.4 Thou/mm3 (1.0-4.8); Lymphocytes % (Auto) 35 % (10-50); Mean Corpuscular HGB Conc 33.6 g/dl (31.0-37.0); Mean Corpuscular Hemoglobin 28.9 pg (25.0-35.0); Mean Corpuscular Volume 86 fL (80-100); Monocytes # (Auto) 0.4 Thou/mm3 (0.0-0.8); Monocytes % (Auto) 6 % (0-12); Neutrophils # (Auto) 3.8 Thou/mm3 (1.8-7.7); Neutrophils % (Auto) 56 % (37-80); Nucleated Red Blood Cell % 0 /100 WBC (0); Platelet Count 277 Thou/mm3 (140-440); RDW Standard Deviation 38.7 fL (36.4-46.3); Red Blood Count 4.77 Miln/mm3 (4.00-5.20); White Blood Count 6.9 Thou/mm3 (3.6-11.0)
[2024-07-08 06:56] LABS: Glucose Estimated Average 203 mg/dL (80-131); Hemoglobin A1C 8.7 % Hgb (4.8-6.0)
[2024-07-08 07:01] LABS: Anion Gap 9 (7-16); BUN/Creatinine Ratio 17 Ratio (12-20); Blood Urea Nitrogen 10 mg/dL (9-23); Calcium 8.7 mg/dL (8.3-10.6); Carbon Dioxide 28.5 mMol/L (20.0-31.0); Chloride 105 mMol/L (98-107); Creatinine (Component) 0.6 mg/dL (0.6-1.3); Estimated Creatinine Clearance 129.5 mL/min (>60); Glucose 133 mg/dL (74-106); Osmolality,Calculated 284 (275-295); Potassium 3.8 mMol/L (3.4-5.1); Sodium 142 mMol/L (136-145); eGFR > 60 See Note
--- NOTE | 2024-07-08 08:00 | XR_ITS ---
Examination: Abdomen AP single view Technique: AP portable supine abdomen, single view Exam date and time: July 08, 2024 0751 hours INDICATIONS: 7 hour delayed film post small bowel series, abdominal pain and distention this week FINDINGS: Contrast primarily in the colon IMPRESSION: Negative for complete small bowel obstruction No further films are needed
[2024-07-08] MEDS: PANTOPRAZOLE INJ 40 MG VIAL IVP (09:56)
[2024-07-08] MEDS: HYDROmorphone INJ 2 MG/ML VIAL 1 MG IVP ×2 (10:01→23:52)
--- NOTE | 2024-07-08 12:00 | CHAP ---
Patient was visited by the Spiritual Care Volunteer who prayed for them. (Volunteer was in the hospital from 10:00-12:00)
[2024-07-08] MEDS: Lisinopril 20 MG TABLET PO (12:21)
--- NOTE | 2024-07-08 14:24 | PD.SURPROG ---
Documentation for date of: 07/08/24 Subjective Subjective Brief History: Patient started having pain and swelling in the lower abdomen where there was a hernia. This was repaired in [place] 2 years ago. She had 1 episode of vomiting but she had a normal bowel movement today Exam Vital Signs Temp Pulse Resp BP Pulse Ox O2 Del Method 97.9 F 83 18 155/105 H 94 L Room Air 07/08/24 12:00 07/08/24 12:21 07/08/24 12:00 07/08/24 12:21 07/08/24 12:00 07/08/24 12:00 Results Results: Imaging Imaging narrative: Follow-up x-ray on the small bowel series showed no evidence of obstruction Assessment & Plan Assessment Additional comments: Impression: Partial small bowel obstruction probably due to incisional hernia Plan Plan: Patient still has a incisional hernia that requires surgery. However she will have a high recurrence rate and therefore she has to be sent to tertiary place for repairing this hernia because of her obesity with a BMI of 47 point. I suggested that she not come back to the ER because this problem will continue when repeated self. Finding out that she is not obstructed is not adequate. She needs to get this hernia repaired once and for all. She could be discharged and followed as an outpatient for hernia repair.
--- NOTE | 2024-07-08 15:28 | ESPR_ITS ---
<Statement entered by Sana Riley MD - 07/09/24 12:48> Patient was seen and examined by me personally. I have directly supervised and reviewed documentation by the team resident and agree with its findings with any exceptions or additional findings as below. Plan of care was discussed with the attending, Dr. Culver. Patient seen this morning resting in bed. When wakened she reports continued mid abdominal pain, rated 9/10. Patient still reports no passage of gas or bowel movement. NG tube is in place. Small bowel series completed this morning showed negative for complete obstruction. Will attempt to start liquid diet and advance as tolerated. Sana Riley, PGY-2 Documentation for date of: 07/08/24 Subjective Subjective Interval history: 07/08/2024: Overnight patient completed small bowel series which showed resolution of the partial SBO. Patient seen and examined in hospital bed reports improvement in abdominal pain; however, she does still have some bloating. Patient's NG tube was discontinued and she was started on clear liquid diets which she has been tolerating although she does state that she feels bloated. General surgery recommends that the patient requires specialist and component separation to repair a large/complex umbilical hernia but at this time there is no strangulation and no emergent surgical need. Will continue to monitor the patient and expect discharge within the next 24 hours so long as she can tolerate soft/GERD diet. Exam Vital Signs Temp Pulse Resp BP Pulse Ox O2 Del Method 97.9 F 83 18 155/105 H 94 L Room Air 07/08/24 12:00 07/08/24 12:21 07/08/24 12:00 07/08/24 12:21 07/08/24 12:00 07/08/24 12:00 Narrative Exam Physical Examination: GEN: Awake, appears to be morbidly obese, able to speak full sentences HEENT: NC/AC, oral mucosa moist, neck supple CVS: RRR, S1-S2 present, no murmurs appreciated RESP: CTAB GI: Abdomen obese, distended, mildly tender to palpation around umbilical region, less hypoactive bowel sounds MSK: able to move all 4 limbs, trace lower extremity edema SKIN: warm and dry MEDICAL CASE MANAGER: AOx3, CN II-XII and Sensation grossly intact. Objective Labs 07/08/24 06:00 07/08/24 06:00 Labs: Laboratory Results - last 24 hr 07/08/24 06:00 WBC 6.9 RBC 4.77 Hgb 13.8 Hct 41.1 MCV 86 MCH 28.9 MCHC 33.6 RDW Std Deviation 38.7 Plt Count 277 D Neut % (Auto) 56 Lymph % (Auto) 35 Wise % (Auto) 6 Eos % (Auto) 3 Baso % (Auto) 0 Neut # (Auto) 3.8 Lymph # (Auto) 2.4 Wise # (Auto) 0.4 Eos # (Auto) 0.2 Baso # (Auto) 0.0 Immature Gran # (Auto) 0.03 H Absolute Nucleated RBC 0.00 Immature Gran % 0 Nucleated RBC % 0 Sodium 142 Potassium 3.8 Chloride 105 Carbon Dioxide 28.5 Anion Gap 9 BUN 10 Creatinine 0.6 Estim Creat Clear Calc 129.5 eGFR > 60 BUN/Creatinine Ratio [address] Glu mg/dL 203 H Hemoglobin A1c 8.7 H Calculated Osmolality 284 Calcium 8.7 Quality Measures Quality Measures none Assessment & Plan Assessment Current Active Medications: Generic Name Dose Route Start Last Admin Trade Name Freq PRN Reason Stop Dose Admin Acetaminophen 650 mg 07/08/24 15:24 Acetaminophen 325 Mg Tablet PO 08/07/24 15:23 Q4HR PRN Pain 1-3 and/or Fever >100.1 Dextrose 25 ml 07/07/24 04:04 Dextrose 50%-Water Inj 50 Ml Syringe IV 08/06/24 04:03 Q15MIN PRN BG 50-70 responsive npo pt Dextrose 50 ml 07/07/24 04:04 Dextrose 50%-Water Inj 50 Ml Syringe IV 08/06/24 04:03 Q15MIN PRN BG <50 OR BG <70 & pt unresponsive Glucagon 1 mg 07/07/24 04:04 Glucagon Inj 1 Mg Vial IM Q15MIN PRN BG <70, and no IV access Hydromorphone HCl 1 mg 07/07/24 04:01 07/08/24 10:01 Hydromorphone Inj 2 Mg/Ml Vial IVP 07/12/24 04:00 1 mg Q2H PRN Administration PAIN Sodium Chloride 1,000 mls @ 120 mls/hr 07/07/24 04:28 07/08/24 12:26 Ns IV 08/06/24 04:26 120 mls/hr .Q8H20M DOLORES Administration Insulin Glargine 20 unit 07/07/24 21:00 07/07/24 20:31 Insulin Glargine (Lantus) 5 Unit/0.05 Ml (Per 5 Units) SC 08/06/24 20:59 Not Given HS [facility] Insulin Human Lispro 0 unit 07/08/24 11:30 07/08/24 12:10 Insulin Lispro (Admelog) 1 Unit/0.01 Ml Unit SC 08/07/24 11:29 Not Given AC [facility] Protocol Ketorolac Tromethamine 30 mg 07/08/24 15:26 Ketorolac Inj 30 Mg/Ml Vial IVP 07/13/24 15:25 Q6HR PRN Pain 4-6 Lisinopril 20 mg 07/08/24 11:15 07/08/24 12:21 Lisinopril 20 Mg Tablet PO 08/07/24 11:14 20 mg QDAY DOLORES Administration Pantoprazole Sodium 40 mg 07/07/24 09:00 07/08/24 09:56 Pantoprazole Inj 40 Mg Vial IVP 08/06/24 08:59 40 mg QDAY DOLORES Administration Plan 53-year-old female patient with past medical history of hypertension, hyperlipidemia, diabetes mellitus, morbid obesity, multiple sclerosis, was brought to the ED due to of abdominal pain and found to have partial small bowel obstruction; moreover, patient started on NG tube with low intermittent suction, remains n.p.o. and general surgery has been consulted for recommendations. #Partial small bowel obstruction #Umbilical hernia Presented with abdominal pain, nausea, vomiting, lower abdominal bulge increased with coughing in the midline. Patient has history of SBO secondary to incarcerated hernia 2 years ago at the same location which was repaired surgically. Vitally patient is stable Abdomen/pelvis CT showed small bowel obstruction secondary to small bowel and the umbilical hernia defect appears to be partially incarcerated Dr. Glaser recommends bowel rest and IV fluids; moreover, there is no need for surgical intervention at this time Patient will require surgical instrument repair specialist for component separation for complex/large umbilical hernia Plan: General Surgery (Dr. Glaser) consulted, appreciate recommendations Discontinued NG tube Advancing diet as tolerated Multimodal pain management Discontinued IV fluids Zofran 4 mg IV every 6 hours as needed Once the patient is stable and ready for discharge, outpatient follow-up for the umbilical hernia repair #Insulin-dependent type 2 diabetes mellitus Patient reported that she is taking 60 international units of long-acting insulin No A1c on file A1c of 8.7 Plan Continue insulin glargine 20 international unit daily SSI #Hypertension Pending official med rec, unsure exactly what medications the patient takes at this time Plan: Will resume home medication after med reconciliation whenever clinically appropriate #History of multiple sclerosis in remission Patient reported that she was diagnosed with multiple sclerosis 2000 she has been following up with a neurologist in [place]. Patient was recently moved to the city she mentions that she has not seen a neurologist for the past 2 years Plan: Continue to monitor symptoms Follow-up in outpatient settings Hospital Management: Lines: PIV Diet: Soft/GERD diet Bowel: Rest GI prophylaxis: Not needed DVT prophylaxis: SCD Dispo: Monitoring for diet tolerance and pain management, expect discharge within the next 24 hours Code: Full Patient seen and examined with attending Dr. Culver and senior resident Dr. Rosemary Tidwell, PGY-1 Attending Provider Attestation/Addendum I attest that I was physically present for the evaluation, physical examination, lab and imaging review of the patient with the residents. I discussed the case with the residents and agree with the findings and plans of care as documented above. At bedside today, patient is states she is feeling better. Her abdominal pain, nausea and vomiting has been improving. Small bowel series shows resolution of small bowel obstruction, contrast in the colon. Patient has been passing gas but still has not had any bowel movement. Started on clear liquid diet to be advanced as tolerated. If patient is able to tolerate her diet well, we will plan for discharge. Ronda Culver MD
[2024-07-08] MEDS: ACETAMINOPHEN 325 MG TABLET 650 MG PO (15:30)
--- NOTE | 2024-07-08 16:24 | PC.PT ---
Patient will need a bariatric RW for patient to ambulate x community distance.
[2024-07-09] VITALS: BP 175/96; PULSE 74; RESP 17; TEMP 36.5; O2SAT 95
[2024-07-09 01:34] VITALS: BP 151/72; PULSE 76; RESP 18; TEMP 36.4; O2SAT 95
[2024-07-09 04:00] VITALS: BP 142/85; PULSE 74; RESP 17; TEMP 36.2; O2SAT 97
[2024-07-09 06:08] LABS: Basophils % (Auto) 0 % (0-2.5); Eosinophils # (Auto) 0.2 Thou/mm3 (0.0-0.5); Eosinophils % (Auto) 3 % (0-10); Hematocrit 39.9 % (36.0-46.0); Hemoglobin 13.3 g/dL (12.0-16.0); Immature Granulocytes % (Auto) 0 % (0-0); Immature Granulocytes Auto 0.02 Thou/mm3 (0.00-0.00); Lymphocytes # (Auto) 2.8 Thou/mm3 (1.0-4.8); Lymphocytes % (Auto) 45 % (10-50); Mean Corpuscular HGB Conc 33.3 g/dl (31.0-37.0); Mean Corpuscular Volume 87 fL (80-100); Monocytes # (Auto) 0.3 Thou/mm3 (0.0-0.8); Monocytes % (Auto) 5 % (0-12); Neutrophils # (Auto) 2.9 Thou/mm3 (1.8-7.7); Neutrophils % (Auto) 47 % (37-80); Nucleated Red Blood Cell % 0 /100 WBC (0); Platelet Count 288 Thou/mm3 (140-440); Red Blood Count 4.59 Miln/mm3 (4.00-5.20); White Blood Count 6.1 Thou/mm3 (3.6-11.0)
[2024-07-09 06:30] LABS: Anion Gap 7 (7-16); BUN/Creatinine Ratio 15 Ratio (12-20); Blood Urea Nitrogen 9 mg/dL (9-23); Calcium 8.8 mg/dL (8.3-10.6); Carbon Dioxide 30.1 mMol/L (20.0-31.0); Chloride 106 mMol/L (98-107); Creatinine (Component) 0.6 mg/dL (0.6-1.3); Estimated Creatinine Clearance 127.1 mL/min (>60); Glucose 132 mg/dL (74-106); Osmolality,Calculated 285 (275-295); Potassium 3.6 mMol/L (3.4-5.1); Sodium 143 mMol/L (136-145); eGFR > 60 See Note
[2024-07-09 08:00] VITALS: BP 139/88; PULSE 66; RESP 18; TEMP 36.4; O2SAT 95
[2024-07-09 08:17] VITALS: BP 139/88; PULSE 66
[2024-07-09] MEDS: Lisinopril 20 MG TABLET PO (08:17)
[2024-07-09 12:00] VITALS: BP 152/89; PULSE 76; RESP 18; TEMP 36.3; O2SAT 96
--- NOTE | 2024-07-09 13:41 | ESDS_ITS ---
Planned Discharge Date 07/09/24 DS: Providers Provider Date of admission: 07/07/24 04:01 Primary care physician: SHRUTI Wall Admitting Provider: Kendall Dorsey MD Attending Provider on Admission: Ronda Culver MD Consults: 07/07/24 04:03 Consult to General Surgery Routine Comment: Consulting Provider: Alex Hawkins 07/07/24 04:20 Consult to General Surgery Stat Comment: Consulting Provider: Alex Hawkins 07/07/24 17:23 Referral Physical Therapy Routine Comment: Physician Instructions: Referral Registered Dietitian Routine Comment: Attending Provider on DC: Will Fink MD Discharging Provider: Will Fink MD DS: Diagnosis Problem List Completed Was Problem List Reviewed/Reconciled?: Yes Hospital Course Hospital Course Hospital course: Patient is a 53-year-old female with past medical history of hypertension, hyperlipidemia, diabetes, morbid obesity, multiple sclerosis however initially admitted on 07/07/2024 due to small bowel obstruction. Patient has a history of hernia repair 2 years ago and for the last couple of days prior to presentation she has been having increasing abdominal distention nausea vomiting and abdominal pain. In the ER patient was found to have a small bowel obstruction secondary to small bowel and the umbilical hernia defect through CT scanning. General surgery was consulted and an NG tube was inserted. Patient was decompressed and symptoms improved after which patient was started on small bowel series which resulted in symptoms and patient was no longer obstructed. Patient's symptoms greatly improved and she was able to tolerate GERD diet prior to discharge. General surgery recommended further evaluation outpatient dietary place for hernia repair due to her elevated BMI. Patient was discharged home with her previous medications and she was prescribed simethicone for gas. Problems addressed during this stay #Partial small bowel obstruction #Umbilical hernia #Insulin-dependent type 2 diabetes mellitus #Hypertension #History of multiple sclerosis in remission Plan: Patient can return home and take simtehicone 125 mg once a day Continue with your home dose of Lantus 60 units daily Continue home dose of lispro 7 units 3 times daily Continue all other home medications as previously prescribed except for the duplicated insulin and lisinopril. Follow-up with PCP in 1 to 2 weeks for referral to General surgery at tertiary facility for the complicated hernia repair. Patient advised to return to the ED if symptoms worsened. I discussed patient's care with attending physician, Dr Abiola Fink PGY3 Time Spent with Patient Time attestation: Total time spent providing and/or coordinating discharge services: Time spent: Less than 30 minutes Exam Vital Signs Temp Pulse Resp BP Pulse Ox O2 Del Method 97.3 F 76 18 152/89 H 96 Room Air 07/09/24 12:00 07/09/24 12:00 07/09/24 12:07/09/24 12:00 07/09/24 12:07/09/24 12:00 Narrative Exam Constitutional: Obese female in no acute distress. CVS: RRR, S1 and S2 present, no murmurs, rubs or gallops . RESP: CTAB, no SOB, no rales, rhonchi or wheezing. No respiratory Distress GI: Large but soft with normal BS, Nontender/Nondistended. MSK: Full range of motion, No trauma or deformities or masses. Skin: Warm to touch, Dry. No rashes or lesions. No hematomas Neuro: beader tender II-XII grossly intact. Sensation grossly intact. Psych: (AAO) x3 . Appropriate mood and affect. Discharge Plan Plan Patient Disposition: HOME (Self Care) Patient condition on transfer: Stable Care Plan Goals: Patient can return home and take simtehicone 125 mg once a day Continue with your home dose of Lantus 60 units daily Continue home dose of lispro 7 units 3 times daily Continue all other home medications as previously prescribed except for the duplicated insulin and lisinopril. Follow-up with PCP in 1 to 2 weeks for referral to General surgery at tertiary facility for the complicated hernia repair. Patient advised to return to the ED if symptoms worsened. Prescriptions/Referrals Prescriptions/Med Rec: New insulin lispro 100 unit/mL insulin pen 7 unit subcut TID Qty: 15 2RF insulin glargine U-300 conc 300 unit/mL (3 mL) insulin pen 60 unit subcut QDAY Qty: 6 2RF simethicone 125 mg capsule 125 mg PO QDAY PRN (Reason: abdominal distention) Qty: 10 0RF Continued allopurinol 100 MG tablet 100 mg PO DAILY Qty: 0 simvastatin 20 MG tablet 20 mg PO HS Qty: 0 potassium chloride [Klor-Con M10] 10 MEQ tablet,ER particles/crystals 10 meq PO QDAY Qty: 0 baclofen 10 MG tablet 10 mg PO TID Qty: 0 docusate sodium [Doc-Q-Lace] 100 MG capsule 100 mg PO BID Qty: 0 duloxetine [Cymbalta] 30 MG capsule,delayed release(DR/EC) 30 mg PO BID Qty: 0 METFORMIN HCL (METFORMIN HCL ER) 500 MG TAB.ER.24 500 mg PO BIDAC Qty: 0 albuterol sulfate [Ventolin HFA] 200 PUFF/INH HFA aerosol inhaler 2 puff Inhalation Q6HR PRN (Reason: SHORTNESS OF BREATH OR WHEEZE) Qty: 0 beclomethasone dipropionate [Qvar] 100 PUFF/INH aerosol 1 puff Inhalation BID Qty: 0 furosemide [Lasix] 20 MG tablet 20 mg PO QDAY Qty: 0 Fluticasone/Salmeterol DISKUS * (ADVAIR DISKUS 500/50 *) 1 DISK/DEV DISK.W.DEV 1 puff Inhalation BID Qty: 0 dimethyl fumarate [Tecfidera] 240 MG capsule,delayed release(DR/EC) 240 mg PO BID Qty: 0 ropinirole [Requip] 1 MG tablet 1 mg PO HS Qty: 30 1RF montelukast [Singulair] 10 MG tablet 10 mg PO HS Qty: 30 1RF diclofenac sodium 50 MG tablet,delayed release (DR/EC) 50 mg PO TIDWM Qty: 90 1RF OXYGEN EACH Qty: 0 PROMETHAZINE/CODEINE (Phenergan W/Cod Syrup) 1 ML syrup 1 - 2 tsp PO q4-6h prn Qty: 180 0RF ACETAMINOPHEN (Tylenol Tab) 325 MG tablet 650 mg PO Q4HR PRN (Reason: PAIN OR FEVER > 101) Qty: 100 0RF aspirin 325 MG tablet 325 mg PO HS Qty: 30 0RF lisinopril 40 mg tablet 40 mg PO QDAY Discontinued insulin lispro [Humalog U-100 Insulin] 100 U/ML solution 100 unit Sub-Q TID Qty: 0 insulin glargine [Lantus U-100 Insulin] 100 U/ML solution 50 unit Sub-Q HS Qty: 3 1RF lisinopril 20 MG tablet 20 mg PO QDAY Qty: 0 insulin glargine [Lantus U-100 Insulin] 100 U/ML solution 10 unit Sub-Q QAM Qty: 4 0RF insulin glargine [Lantus U-100 Insulin] 100 U/ML solution 55 unit Sub-Q HS Qty: 4 0RF Novolin R Regular U100 Insulin 1 UNIT/0.01 ML unit 0 unit Sub-Q ACHS Qty: 4 0RF Insulin Syringe * 1 EACH DISP.SYRIN Qty: 1 0RF Referrals: Jitendra Davies, INTERNET MARKETING DIRECTOR [Primary Care Provider] - Patient/Caregiver Discharge Instructions Education Materials: Small Bowel Obstruction, What Is a Hernia?, Discharge Instructions- Eating ... Print Language: Tajik Stand Alone Forms: Nancy Award Info., Patient Portal Info Letter Discharge Order Discharge Orders: Discharge (Routine); Ordered 07/09/24 Ordered By: Will Fink Quality Discharge Quality Measures VTE prophylaxis Attestestation MD Attestation I attest that I was physically present for the evaluation, physical examination, lab and imaging review of the patient with the residents. I discussed the case with the residents and agree with the findings and plans of care as documented above. Ronda Culver MD
--- NOTE | 2024-07-09 15:08 | PC.NURSE ---
DC reviewed with pt and family, iv dc, pt ready for dc.
== END 2024-07-09 15:12 | disposition home or self-care (01) | DRG 254 ==
LOC: SERX 20:04 → SERHOLD 07-07 04:59 → S3SX 07-07 16:01
PROVIDERS: Physician Assistant; Student in an Organized Health Care Education/Training Program; Admitting Provider Internal Medicine; Emergency Provider Emergency Medicine; PCP Nurse Practitioner; Visit Provider Student in an Organized Health Care Education/Training Program
DX: K42.0 Umbilical hernia with obstruction, without gangrene (principal); E11.9 Type 2 diabetes mellitus without complications; E78.5 Hyperlipidemia, unspecified; I10 Essential (primary) hypertension; E66.01 Morbid (severe) obesity due to excess calories; Z68.42 Body mass index [BMI] 45.0-49.9, adult; G35 Multiple sclerosis; Z79.4 Long term (current) use of insulin; Z79.84 Long term (current) use of oral hypoglycemic drugs; J45.909 Unspecified asthma, uncomplicated; Z79.899 Other long term (current) drug therapy
CPT/HCPCS: 36415; 71045; 74018; 74177; 74250; 80048; 80053; 81001; 83036; 83605; 83690; 85025; 85610; 85730; 96361; 96372; 96374; 97162; 99285; A4649; J1815; J2470; J3010; J3490; J7030; Q0162; Q9963; Q9967; A9270

== ENCOUNTER 2024-07-30 09:50 | Emergency (ER) | payer MEDICAID, SELFPAY ==
[2024-07-30 09:51] VITALS: BMI 47.5
[2024-07-30 10:11] VITALS: BP 163/97; PULSE 81; RESP 18; TEMP 37.2; O2SAT 97
--- NOTE | 2024-07-30 10:14 | XR_ITS ---
Examination: Foot, left, 3 views Technique: AP, oblique, lateral views foot, 3 views Date and time of exam: July 30, 2024 10:44 AM Indications: Patient fell yesterday with injury to the foot, foot pain Findings: No fracture or dislocation Small plantar bony calcaneal spur No opaque foreign body Impression: No acute fracture
--- NOTE | 2024-07-30 10:14 | XR_ITS ---
Examination: Knee bilateral, 6 views Technique: Knee AP, lateral, oblique each knee total 6 views Date and time of exam: July 30 70,025, 10:46 AM Indications: Patient fell yesterday with injury to both knees, bilateral knee pain. Findings: No fracture bone contusion involving either knee Mild bilateral tricompartment osteoarthritis Impression: No fracture or dislocation involving either knee
--- NOTE | 2024-07-30 10:14 | XR_ITS ---
EXAMINATION: Ankle, left 3 views . Technique: Ankle AP, oblique, lateral 3 views Date and time of exam: July 30, 2024 1040 hrs. Indications: Patient fell yesterday with injury to the ankle, ankle pain. Findings: No fracture or dislocation. Impression: No fracture or dislocation.
--- NOTE | 2024-07-30 11:48 | PD.EDFALL ---
ED Fall Injury RME/HPI General Chief Complaint: Fall Stated Complaint: FALL, PAIN LEFT TOES WITH SWELLING/PURPLE Time Seen by Provider: 07/30/24 10:15 Arrival date/time: 07/30/24 09:50 53-year-old female presents emergency department today saying that she had a trip and fall on a puddle of water patient reports she fell injuring both knees left foot and left ankle there are no other associated symptoms or aggravating factors no other modifying factors, patient denies taking medication before coming to ER today Limitations: no limitations Related Data Home Medications ?Medication ?Instructions ?Recorded ?Confirmed allopurinol 100 mg tablet 100 mg PO DAILY Gout ##0 10/31/11 potassium chloride 10 mEq 10 meq PO QDAY ##0 10/31/11 tablet,extended release(part/cryst) (Klor-Con M) simvastatin 20 mg tablet 20 mg PO HS CHOLESTROL ##0 10/31/11 METFORMIN HCL (METFORMIN HCL ER) 500 mg PO BIDAC DIABETES ##0 06/14/13 baclofen 10 mg tablet 10 mg PO TID #0 tabs 06/14/13 docusate sodium 100 mg capsule 100 mg PO BID CONSTIPATION ##0 06/14/13 (Doc-Q-Lace) duloxetine 30 mg capsule,delayed 30 mg PO BID #0 caps 06/14/13 release (Cymbalta) albuterol sulfate 90 mcg/actuation 2 puff inhalation Q6HR PRN 09/29/13 aerosol inhaler (Ventolin HFA) SHORTNESS OF BREATH OR WHEEZE #0 puffs beclomethasone dipropionate 80 1 puff inhalation BID ASTHMA #0 03/16/14 mcg/actuation aerosol inhaler puffs (Qvar) furosemide 20 mg tablet (Lasix) 20 mg PO QDAY WATER #0 tabs 03/16/14 Fluticasone/Salmeterol DISKUS * 1 puff inhalation BID ASTHMA #0 07/02/14 (ADVAIR DISKUS 500/50 *) puffs dimethyl fumarate 240 mg 240 mg PO BID ##0 07/02/14 capsule,delayed release (Tecfidera) OXYGEN ##0 09/01/14 lisinopril 40 mg tablet 40 mg PO QDAY 07/09/24 07/09/24 Previous Rx's ?Medication ?Instructions ?Recorded diclofenac sodium 50 mg 50 mg PO TIDWM ##90 07/06/14 tablet,delayed release montelukast 10 mg tablet 10 mg PO HS #30 tabs 07/06/14 (Singulair) ropinirole 1 mg tablet (Requip) 1 mg PO HS #30 tabs 07/06/14 PROMETHAZINE/CODEINE (Phenergan 1 - 2 tsp PO q4-6h prn ##180 09/01/14 W/Cod Syrup) ACETAMINOPHEN (Tylenol Tab) 650 mg PO Q4HR PRN PAIN OR FEVER > 09/22/14 101 #100 tabs aspirin 325 mg tablet 325 mg PO HS #30 tabs 09/22/14 insulin glargine U-300 conc 300 60 unit (0.2 mL) subcut QDAY #6 mL 07/09/24 unit/mL (3 mL) subcutaneous pen insulin lispro 100 unit/mL 7 unit (0.07 mL) subcut TID #15 mL 07/09/24 subcutaneous pen simethicone 125 mg capsule 125 mg PO QDAY PRN abdominal 07/09/24 distention #10 caps bacitracin 500 unit/gram topical 1 applic topical TID 7 days #28.4 07/30/24 ointment grams ibuprofen 600 mg tablet 600 mg PO Q6H #30 tabs 07/30/24 Allergies Allergy/AdvReac Type Severity Reaction Status Date / Time morphine Allergy Severe RASH Verified 07/30/24 09:53 FIG Allergy Severe Rash Uncoded 07/30/24 09:55 Review of Systems Review of Systems Systems Reviewed: All systems reviewed, normal except as documented Constitutional Constitutional: Reports system reviewed and no additional complaints, except as documented, Denies fever(s) and Denies headache(s) Eyes Eyes: Reports system reviewed and no additional complaints, except as documented and Denies blurry vision ENT Ears, Nose, Mouth, and Throat: Reports system reviewed and no additional complaints, except as documented, Denies headache(s), Denies nasal congestion, Denies nasal discharge and Denies neck pain Cardiovascular Cardiovascular: Reports system reviewed and no additional complaints, except as documented, Denies chest pain and Denies dyspnea Respiratory Respiratory: Reports system reviewed and no additional complaints, except as documented, Denies chest congestion, Denies cough and Denies dyspnea Gastrointestinal Gastrointestinal: Reports system reviewed and no additional complaints, except as documented and Denies abdominal pain Musculoskeletal Musculoskeletal: Reports system reviewed and no additional complaints, except as documented, Denies abnormal gait, Reports arthralgias (Bilateral knee pain, ankle and foot pain), Denies deformity, Denies neck pain, Denies numbness, Denies stiffness and Denies tingling Integumentary/Breasts Skin/Breast: Reports system reviewed and no additional complaints, except as documented and Denies rash Neurologic Neurologic: Reports system reviewed and no additional complaints, except as documented, Reports as per HPI, Denies abnormal gait, Denies headache(s), Denies numbness and Denies tingling Past Medical History Past Medical History NEUROLOGIC: Positive Transient Ischemic Attacks (TIA) and Multiple Sclerosis CARDIAC: Positive Hypercholesterolemia and Hypertension; Negative Cardiac Disorders or Congestive Heart Failure RESPIRATORY: Positive Chronic Obstructive Pulmonary Disease (COPD) and Asthma GASTROINTESTINAL: Positive Obstructive Bowel and Obesity GENITOURINARY: Negative Renal Disease ENDOCRINE: Positive Diabetes Mellitus Type 2; Negative Diabetes Mellitus Type 1 HEMATOLOGIC: Negative Sickle Cell Disease Surgical History SURGICAL: Positive Abdominal Surgery Social History SMOKING STATUS: Never smoker ED Exam General Limitations: Present no limitations General appearance: Present alert and in no apparent distress Head Head exam: Present atraumatic, normocephalic and normal inspection Eye Eye exam: Present normal appearance, PERRL and EOMI ENT ENT exam: Present normal exam, normal oropharynx and mucous membranes moist Neck Neck exam: Present normal inspection, full ROM and trachea midline Chest Chest inspection: Present normal inspection and symmetric chest wall rise Respiratory Respiratory exam: Present normal lung sounds bilaterally Cardiovascular Cardiovascular exam: Present regular rate, normal rhythm and normal heart sounds Abdominal Exam Abdominal exam: Present soft and normal bowel sounds Extremities Exam Extremities exam: Present full ROM, tenderness and normal capillary refill; Absent joint swelling (Abrasions bilateral knees, mild bruising left foot mild swelling left ankle) Back Exam Back exam: Present normal inspection and full ROM Neurological Exam Neurological exam: Present alert, oriented X3 and CN II-XII intact Psychiatric Psychiatric exam: Present normal affect and normal mood Skin Skin exam: Present warm, dry, intact and normal color Course Quality Measures none Orders Category Date Time Status XR ankle comp LT min 3V Stat Exams 07/30/24 10:14 Completed XR foot comp LT min 3V Stat Exams 07/30/24 10:14 Completed XR knee BI 3V Stat Exams 07/30/24 10:14 Completed TET,DIP/PERT AC (Adult)-Tdap [Boostrix Adult (Tdap) Med 07/30/24 11:54 Discontinued Vacc] 0.5 ml IMI .ONCE ONE Vital Signs Vital signs: Vital Signs Temperature 99 F 07/30/24 10:11 Pulse Rate 81 07/30/24 10:11 Respiratory Rate 18 07/30/24 10:11 Blood Pressure 163/97 H 07/30/24 10:11 Pulse Oximetry (%) 97 07/30/24 10:11 Oxygen Delivery Method Room Air 07/30/24 10:11 O2 saturation 97% on room air within normal limits Fall MDM Narrative MDM Narrative:: 53-year-old female presents emergency department today saying that she had a trip and fall on a puddle of water patient reports she fell injuring both knees left foot and left ankle there are no other associated symptoms or aggravating factors no other modifying factors, patient denies taking medication before coming to ER today On exam patient has bruising and tenderness left foot and abrasions of bilateral knees Tdap updated Patient walks with steady gait patient reports no head or neck injury no chest pain or shortness of breath Patient reports fall was mechanical Patient discharged home in no distress to follow-up with primary care doctor in the next 24 to 48 hours and for any worsening symptoms to return to the ER immediately Patient data External records reviewed:: [facility] previous records Clinical information provided by:: patient Social determinants that could affect healthcare access:: none Patient has the following chronic illnesses:: See history How is presenting disease/condition affected by chronic disease/condition?: uneffected by Evaluation data The following diagnostics were reviewed and interpreted by me:: radiology exam(s) Lab and/or radiology exams considered but not ordered:: Radiology obtain Interpretation Summary: Reviewed by me Medications / Prescriptions Medications or Prescriptions considered but not ordered:: Given Medication administrations:: Medication Administration History Discontinued Medications Diphtheria/Tetanus/Acell Pertussis (Diphth,Pertuss(Acell),Tet Vac 0.5 Ml Syr- Adult) 0.5 ml IMi .ONCE ONE Stop: 07/30/24 11:55 Last Admin: 07/30/24 12:05 Dose: 0.5 ml Documented By: CN Given Consultations Consultation(s) initiated? (list below): No Diagnosis Fall Differential Diagnosis: other Most likely diagnosis given after review of the tests above:: Contusion of knees, abrasion Admission Indicated Admission indicated?: not indicated Admission Request Was there a request for admission?: No Disposition Plan Disposition Plan: Discharge Discharge Attestation Discharge Attestation: The patient and all family members were given an opportunity to ask questions and understood the discharge instructions. Discharge instructions specifically effects, indications for sooner follow up or return to the emergency department, and the expected course of current diagnosis. Patient condition: Stable Discharge Plan Plan Patient Disposition: HOME (Self Care) Disposition Comment: Stable Prescriptions/Referrals Prescriptions/Med Rec: New bacitracin 500 unit/gram ointment 1 applic topical TID 7 Days Qty: 28.4 0RF ibuprofen 600 mg tablet 600 mg PO Q6H Qty: 30 0RF No Action allopurinol 100 MG tablet 100 mg PO DAILY Qty: 0 simvastatin 20 MG tablet 20 mg PO HS Qty: 0 potassium chloride [Klor-Con M10] 10 MEQ tablet,ER particles/crystals 10 meq PO QDAY Qty: 0 baclofen 10 MG tablet 10 mg PO TID Qty: 0 docusate sodium [Doc-Q-Lace] 100 MG capsule 100 mg PO BID Qty: 0 duloxetine [Cymbalta] 30 MG capsule,delayed release(DR/EC) 30 mg PO BID Qty: 0 METFORMIN HCL (METFORMIN HCL ER) 500 MG TAB.ER.24 500 mg PO BIDAC Qty: 0 albuterol sulfate [Ventolin HFA] 200 PUFF/INH HFA aerosol inhaler 2 puff Inhalation Q6HR PRN (Reason: SHORTNESS OF BREATH OR WHEEZE) Qty: 0 beclomethasone dipropionate [Qvar] 100 PUFF/INH aerosol 1 puff Inhalation BID Qty: 0 furosemide [Lasix] 20 MG tablet 20 mg PO QDAY Qty: 0 Fluticasone/Salmeterol DISKUS * (ADVAIR DISKUS 500/50 *) 1 DISK/DEV DISK.W.DEV 1 puff Inhalation BID Qty: 0 dimethyl fumarate [Tecfidera] 240 MG capsule,delayed release(DR/EC) 240 mg PO BID Qty: 0 ropinirole [Requip] 1 MG tablet 1 mg PO HS Qty: 30 1RF montelukast [Singulair] 10 MG tablet 10 mg PO HS Qty: 30 1RF diclofenac sodium 50 MG tablet,delayed release (DR/EC) 50 mg PO TIDWM Qty: 90 1RF OXYGEN EACH Qty: 0 PROMETHAZINE/CODEINE (Phenergan W/Cod Syrup) 1 ML syrup 1 - 2 tsp PO q4-6h prn Qty: 180 0RF ACETAMINOPHEN (Tylenol Tab) 325 MG tablet 650 mg PO Q4HR PRN (Reason: PAIN OR FEVER > 101) Qty: 100 0RF aspirin 325 MG tablet 325 mg PO HS Qty: 30 0RF lisinopril 40 mg tablet 40 mg PO QDAY insulin lispro 100 unit/mL insulin pen 7 unit subcut TID Qty: 15 2RF insulin glargine U-300 conc 300 unit/mL (3 mL) insulin pen 60 unit subcut QDAY Qty: 6 2RF simethicone 125 mg capsule 125 mg PO QDAY PRN (Reason: abdominal distention) Qty: 10 0RF Referrals: No Primary/Family,Physician [Primary Care Provider] - In 1 week Problem List Clinical Impression: Acute bilateral knee pain, Acute pain of left foot Patient/Caregiver Discharge Instructions Education Materials: ED Arthralgia Additional Instructions: Please follow up with your primary care doctor in the next 24-48hrs for any worsening symptoms return here immediately Print Language: Anguillan Stand Alone Forms: Nancy Award Info., Patient Portal Info Letter PA/ENERGY TRADER Supervising Physician JAMARCUS/SHRUTI Supervising Physician: Dr Trevino
[2024-07-30 11:54] VITALS: BP 164/92; PULSE 79; RESP 20; TEMP 36.5; O2SAT 97
[2024-07-30] MEDS: DIPHTH,PERTUSS(ACELL),TET VAC 0.5 ML SYR- ADULT IMi (12:05)
== END 2024-07-30 12:15 | disposition home or self-care (01) ==
PROVIDERS: Emergency Provider Emergency Medicine
DX: S80.212A Abrasion, left knee, initial encounter (principal); S80.211A Abrasion, right knee, initial encounter; S90.32XA Contusion of left foot, initial encounter; S99.912A Unspecified injury of left ankle, initial encounter; W01.0XXA Fall on same level from slipping, tripping and stumbling without subsequent striking against object, initial encounter; Z23 Encounter for immunization
CPT/HCPCS: 73562; 73610; 73630; 90471; 90715; 99283

== ENCOUNTER → 2024-08-18 | Outpatient (BNVA) | payer MEDICAID, SELFPAY | END | disposition home or self-care (01) | PROVIDERS: PCP Nurse Practitioner Family; Referring Provider Nurse Practitioner Family; Visit Provider Nurse Practitioner Family | DX: E78.5 Hyperlipidemia, unspecified (principal); Z23 Encounter for immunization; E66.9 Obesity, unspecified; Z12.11 Encounter for screening for malignant neoplasm of colon; J44.9 Chronic obstructive pulmonary disease, unspecified; I05.0 Rheumatic mitral stenosis; E11.40 Type 2 diabetes mellitus with diabetic neuropathy, unspecified; J45.909 Unspecified asthma, uncomplicated; H40.9 Unspecified glaucoma; F19.20 Other psychoactive substance dependence, uncomplicated; M19.90 Unspecified osteoarthritis, unspecified site; Z80.9 Family history of malignant neoplasm, unspecified | CPT/HCPCS: 83036; 90471; 90677; 99215; G0009; J90677 ==

== ENCOUNTER → 2024-08-22 | Outpatient (BNVA) | payer MEDICAID, SELFPAY | END | disposition home or self-care (01) | PROVIDERS: PCP Nurse Practitioner Family; Referring Provider Nurse Practitioner Family; Visit Provider Nurse Practitioner Family | DX: E11.69 Type 2 diabetes mellitus with other specified complication (principal); E66.9 Obesity, unspecified; Z79.4 Long term (current) use of insulin; R52 Pain, unspecified | CPT/HCPCS: 99212; G0463 ==

== ENCOUNTER → 2024-08-24 | Outpatient (BNVA) | payer MEDICAID, SELFPAY | END | disposition home or self-care (01) | PROVIDERS: PCP Nurse Practitioner Family; Referring Provider Nurse Practitioner Family; Visit Provider Nurse Practitioner Family | DX: Z12.4 Encounter for screening for malignant neoplasm of cervix (principal); K46.9 Unspecified abdominal hernia without obstruction or gangrene; N76.0 Acute vaginitis | CPT/HCPCS: 81001; 99215; Q0091 ==

== ENCOUNTER → 2024-08-30 | Outpatient (BNVA) | payer MEDICAID, SELFPAY | END | disposition home or self-care (01) | PROVIDERS: PCP Nurse Practitioner Family; Referring Provider Nurse Practitioner Family; Visit Provider Nurse Practitioner Family | DX: Z00.01 Encounter for general adult medical examination with abnormal findings (principal); G35 Multiple sclerosis; E11.40 Type 2 diabetes mellitus with diabetic neuropathy, unspecified; R42 Dizziness and giddiness; G25.81 Restless legs syndrome; H40.89 Other specified glaucoma; Z80.9 Family history of malignant neoplasm, unspecified; Z79.4 Long term (current) use of insulin; K46.9 Unspecified abdominal hernia without obstruction or gangrene; R10.9 Unspecified abdominal pain; G89.29 Other chronic pain; R07.9 Chest pain, unspecified; E66.01 Morbid (severe) obesity due to excess calories; Z68.43 Body mass index [BMI] 50.0-59.9, adult; J44.9 Chronic obstructive pulmonary disease, unspecified; E78.5 Hyperlipidemia, unspecified; E11.69 Type 2 diabetes mellitus with other specified complication; Z71.85 Encounter for immunization safety counseling; N39.0 Urinary tract infection, site not specified | CPT/HCPCS: 81001; 96372; 99173; 99215 ==

== ENCOUNTER → 2024-09-07 | Outpatient (BNVA) | payer MEDICAID, SELFPAY | END | disposition home or self-care (01) | PROVIDERS: PCP Nurse Practitioner Family; Referring Provider Nurse Practitioner Family; Visit Provider Nurse Practitioner Family | DX: K46.9 Unspecified abdominal hernia without obstruction or gangrene (principal); N39.0 Urinary tract infection, site not specified; Z79.4 Long term (current) use of insulin; E11.40 Type 2 diabetes mellitus with diabetic neuropathy, unspecified; J44.9 Chronic obstructive pulmonary disease, unspecified; E78.5 Hyperlipidemia, unspecified; I10 Essential (primary) hypertension; E55.9 Vitamin D deficiency, unspecified; Z71.2 Person consulting for explanation of examination or test findings; E11.69 Type 2 diabetes mellitus with other specified complication; R80.9 Proteinuria, unspecified; Z12.11 Encounter for screening for malignant neoplasm of colon | CPT/HCPCS: 96372; 99212; 99214; A4216; J0696 ==

== ENCOUNTER → 2024-09-09 | Outpatient (BNVA) | payer MEDICAID, SELFPAY | END | disposition home or self-care (01) | PROVIDERS: PCP Nurse Practitioner Family; Visit Provider Internal Medicine | DX: R80.9 Proteinuria, unspecified (principal); E55.9 Vitamin D deficiency, unspecified; N39.0 Urinary tract infection, site not specified; B96.89 Other specified bacterial agents as the cause of diseases classified elsewhere; E78.5 Hyperlipidemia, unspecified; E11.69 Type 2 diabetes mellitus with other specified complication; E66.9 Obesity, unspecified; K42.0 Umbilical hernia with obstruction, without gangrene | CPT/HCPCS: 99204 ==

== ENCOUNTER → 2024-09-14 | Outpatient (BNVA) | payer MEDICAID, SELFPAY | END | disposition home or self-care (01) | PROVIDERS: PCP Nurse Practitioner Family; Referring Provider Nurse Practitioner Family; Visit Provider Nurse Practitioner Family | DX: N39.0 Urinary tract infection, site not specified (principal); K46.9 Unspecified abdominal hernia without obstruction or gangrene; E66.9 Obesity, unspecified | CPT/HCPCS: 81001; 99215 ==

== ENCOUNTER → 2024-09-22 | Outpatient (BNVA) | payer MEDICAID, SELFPAY | END | disposition home or self-care (01) | PROVIDERS: PCP Nurse Practitioner Family; Referring Provider Nurse Practitioner Family; Visit Provider Nurse Practitioner Family | DX: Z71.2 Person consulting for explanation of examination or test findings (principal); N39.0 Urinary tract infection, site not specified; K42.9 Umbilical hernia without obstruction or gangrene; E66.9 Obesity, unspecified; E11.40 Type 2 diabetes mellitus with diabetic neuropathy, unspecified; Z68.42 Body mass index [BMI] 45.0-49.9, adult | CPT/HCPCS: 99213 ==

== ENCOUNTER → 2024-10-26 | Outpatient (BNVA) | payer MEDICAID, SELFPAY | END | disposition home or self-care (01) | PROVIDERS: PCP Nurse Practitioner Family; Referring Provider Nurse Practitioner Family; Visit Provider Nurse Practitioner Family | DX: Z09 Encounter for follow-up examination after completed treatment for conditions other than malignant neoplasm (principal); R60.9 Edema, unspecified; R10.9 Unspecified abdominal pain; E11.9 Type 2 diabetes mellitus without complications; K46.9 Unspecified abdominal hernia without obstruction or gangrene; E78.5 Hyperlipidemia, unspecified; Z91.148 Patient's other noncompliance with medication regimen for other reason; E66.9 Obesity, unspecified; Z68.42 Body mass index [BMI] 45.0-49.9, adult | CPT/HCPCS: 99215 ==

== ENCOUNTER → 2024-10-28 | Outpatient (BNVA) | payer MEDICAID, SELFPAY | END | disposition home or self-care (01) | PROVIDERS: PCP Internal Medicine; Referring Provider Internal Medicine; Visit Provider Internal Medicine | DX: R80.9 Proteinuria, unspecified (principal); E55.9 Vitamin D deficiency, unspecified; E78.5 Hyperlipidemia, unspecified; E11.9 Type 2 diabetes mellitus without complications; E66.9 Obesity, unspecified; K42.0 Umbilical hernia with obstruction, without gangrene | CPT/HCPCS: 99214 ==

== ENCOUNTER → 2024-11-01 | Outpatient (BNVA) | payer MEDICAID, SELFPAY | END | disposition home or self-care (01) | PROVIDERS: PCP Nurse Practitioner Family; Referring Provider Nurse Practitioner Family; Visit Provider Nurse Practitioner Family | DX: M54.50 Low back pain, unspecified (principal); M54.2 Cervicalgia; E78.5 Hyperlipidemia, unspecified; E11.9 Type 2 diabetes mellitus without complications; Z79.4 Long term (current) use of insulin; E66.01 Morbid (severe) obesity due to excess calories; R60.9 Edema, unspecified; Z68.42 Body mass index [BMI] 45.0-49.9, adult | CPT/HCPCS: 99215 ==

== ENCOUNTER → 2024-11-22 | Outpatient (BNVA) | payer MEDICAID, SELFPAY | END | disposition home or self-care (01) | PROVIDERS: PCP Nurse Practitioner Family; Referring Provider Nurse Practitioner Family; Visit Provider Nurse Practitioner Family | DX: E11.9 Type 2 diabetes mellitus without complications (principal); K59.04 Chronic idiopathic constipation; E66.9 Obesity, unspecified | CPT/HCPCS: 99212; G0463 ==

== ENCOUNTER → 2024-11-29 | Outpatient (BNVA) | payer MEDICAID, SELFPAY | END | disposition home or self-care (01) | PROVIDERS: PCP Nurse Practitioner Family; Referring Provider Nurse Practitioner Family; Visit Provider Nurse Practitioner Family | DX: E11.9 Type 2 diabetes mellitus without complications (principal); E78.5 Hyperlipidemia, unspecified; E66.01 Morbid (severe) obesity due to excess calories; Z68.42 Body mass index [BMI] 45.0-49.9, adult | CPT/HCPCS: 99215 ==

== ENCOUNTER → 2024-12-06 | Outpatient (BNVA) | payer MEDICAID, SELFPAY | END | disposition home or self-care (01) | PROVIDERS: PCP Nurse Practitioner Family; Referring Provider Nurse Practitioner Family; Visit Provider Nurse Practitioner Family | DX: Z71.2 Person consulting for explanation of examination or test findings (principal); E78.5 Hyperlipidemia, unspecified | CPT/HCPCS: 99214 ==

== ENCOUNTER → 2024-12-09 | Outpatient (CLI) | payer MEDICAID, SELFPAY ==
--- NOTE | 2024-12-09 12:00 | XR_ITS ---
Examination: MRI lumbar spine without contrast Date and time of exam: December 09, 2024, 1246 hours INDICATIONS: Low back pain radiating down both legs paresthesias and weakness in the legs 5 years Technique: Multiple MRI axial and sagittal sections lumbar spine. Sagittal T2-weighted images, TR 3500, TE 118 T1 weighted transverse sections, TR 688 T8.5, T2-weighted sagittal sections T1 weighted sagittal sections TR 621, TE 30 T2 axial sections, TR 4, 190, TE 84. Findings: Minimal anterolisthesis L5 on S1 No lumbar fracture Diffuse lumbar disc desiccation Moderate disc narrowing L5-S1. L5-S1 no disc protrusion L4-L5 no disc protrusion L3-L4 no disc protrusion L2-L3 no disc protrusion L1-L2 no disc protrusion IMPRESSION: Diffuse lumbar degenerative disc disease No significant acquired spinal stenosis Incidental note 4 mm disc protrusion at the T11-T12 level, consider follow-up MRI thoracic spine as clinically warranted
--- NOTE | 2024-12-09 12:30 | XR_ITS ---
Examination: MRI cervical spine without intravenous contrast Date and time of exam: December 09, 2024 1224 hours INDICATIONS: Neck pain radiating to the arms weakness in the arms 5 months Technique: Multiple axial and sagittal sections of the cervical spine to been obtained. T2 weighted sagittal sections, TR 3, 270, TE 117 T1-weighted sagittal sections, TR 500, TE 11 T1-weighted axial sections, TR 607, TE 12, axial sections TR 18, TE 27 and T2 weighted transverse sections, TR 3920, TE 122. Findings: Straightening normal cervical lordosis. No cervical fracture. Intact odontoid. Diffuse cervical disc desiccation. No localized enlargement cervical cord C2-C3 no disc protrusion C3-C4 mild left neural foraminal stenosis C4-C5 no disc protrusion C5-C6 5 mm central left paracentral osteophyte disc complex, indenting the ventral margin cervical cord, moderate right advanced left neural foraminal stenosis C6-C7 2 mm central disc bulges C7-T1 no disc protrusion IMPRESSION: C5-C6 5 mm central left paracentral osteophyte disc complex indenting the ventral margin cervical cord, moderate right advanced left neural foraminal stenosis
== END | disposition home or self-care (01) ==
PROVIDERS: PCP Nurse Practitioner Family; Referring Provider Nurse Practitioner Family; Visit Provider Nurse Practitioner Family
DX: M25.78 Osteophyte, vertebrae (principal); M48.02 Spinal stenosis, cervical region; M51.360 Other intervertebral disc degeneration, lumbar region with discogenic back pain only; M51.24 Other intervertebral disc displacement, thoracic region
CPT/HCPCS: 72141; 72148

== ENCOUNTER 2024-12-13 11:33 | Emergency (ER) | payer MEDICAID, SELFPAY ==
[2024-12-13 11:34] VITALS: BMI 47.7
[2024-12-13 12:22] VITALS: BP 150/79; PULSE 89; RESP 18; TEMP 37.1; O2SAT 95
--- NOTE | 2024-12-13 12:24 | EDNOTE_ITS ---
<Statement entered by Jessica Segura MD - 12/24/24 11:14> As co-signing physician, I was present and available for consult prn. I concur with the plan and care as documented by the midlevel provider. ED General RME/HPI General Chief complaint: Animal Bite Stated complaint: MOUSE BITE TO L) INDEX FINGER YESTERDAY Time Seen by Provider: 12/13/24 12:13 Arrival date/time: 12/13/24 11:33 CC: Index finger pain, patient woke up stating she had a bite to the medial aspect of the second digit of the left hand. Patient has 3 very small closed puncture wounds no surrounding erythema or edema states the pain radiates up into her wrist into her forearm. Patient is concerned because she recent had abdominal surgery is concerned that the infection may spread to her abdomen . Patient is a diabetic with hypertension morbidly obese has not taken any pain medications related to this infection onset was noted 36 hours ago. Patient is afebrile nontoxic-appearing not in any acute distress. Related Data Home Medications ?Medication ?Instructions ?Recorded ?Confirmed pregabalin 50 mg capsule 50 mg PO BID 10/28/24 ergocalciferol (vitamin D2) 1,250 1,250 mcg PO QWEEK 0 11/29/24 11/29/24 mcg (50,000 unit) capsule Previous Rx's ?Medication ?Instructions ?Recorded insulin lispro 100 unit/mL 7 unit (0.07 mL) subcut TID #15 mL 08/18/24 subcutaneous pen omega-3 fatty acids 1,000 mg 1,000 mg PO QDAY #90 caps 09/07/24 capsule albuterol sulfate 90 mcg/actuation 2 puff inhalation Q 6H PRN 10/28/24 aerosol inhaler bronchospasm #8.5 grams aspirin 81 mg tablet 81 mg PO QDAY #90 tabs 10/28 blood-glucose sensor (FreeStyle #2 ea 10/28/24 Fausto 3 Sensor device) blood-glucose,forestry patrolman,cont #1 ea 10/28/24 (FreeStyle Fausto 3 [place]) empagliflozin 25 mg tablet 25 mg PO QAM #90 tabs 10/28 (Jardiance) fluticasone fur. 100 mcg-umeclid 1 inh inhalation QDAY #28 ea 10/28/24 62.5 mcg-vilant 25 mcg inhalat.powder (Trelegy Ellipta) insulin glargine U-300 conc 300 35 unit (0.1167 mL) ross bcut 10/28/24 unit/mL (3 mL) subcutaneous pen .COMPLEX 30 days #6 mL lisinopril 40 mg tablet 40 mg PO QDAY #90 tabs 10/28 hydrochlorothiazide 25 mg tablet 25 mg PO QDAY #90 tab s 11/01/24 docusate sodium 100 mg capsule 100 mg PO QDAY PRN cons tipation 11/22/24 (Colace) #30 caps metformin 1,000 mg tablet 1,000 mg PO BID 90 days #180 tabs 11/22/24 famotidine 20 mg tablet 20 mg PO BID #90 tabs tirzepatide 5 mg/0.5 mL 5 mg (0.5 mL) subcut QWEEK 4 weeks 11/29/24 subcutaneous pen injector #2 mL (John) fenofibrate 160 mg tablet 160 mg PO QDAY #90 tabs 11/12 10/05 cephalexin 500 mg capsule 500 mg PO BID #14 caps 12/13 meloxicam 7.5 mg tablet 7.5 mg PO QDAY #10 tabs 06/07 Allergies Allergy/AdvReac Type Severity Reaction Status Date / Time morphine Allergy Severe RASH Verified 12/13/24 11:37 FIG Allergy Severe Rash Uncoded 12/13/24 11:37 Review of Systems Review of Systems Narrative Review of Systems: GEN: No fever, no chills, no weight loss EYES: No discharge, no visual changes, no pain HEENT: No ear pain, no congestion, no sore throat PULM: No shortness of breath, no cough, no congestion CV: No chest pain, no dyspnea on exertion, no palpitations GI: No nausea, no vomiting, no diarrhea, no pain, no constipation : No frequency, no urgency, no dysuria MUSC/SKEL: No joint pain, no back pain SKIN: No rash PSYCH: No hallucinations, no depression HEME/LYMPH: No easy bleeding or bruising tendencies NEURO: No weakness, no headache Past Medical History Past Medical History NEUROLOGIC: Positive Transient Ischemic Attacks (TIA) and Multiple Sclerosis CARDIAC: Positive Hypercholesterolemia and Hypertension; Negative Cardiac Disorders or Congestive Heart Failure RESPIRATORY: Positive Chronic Obstructive Pulmonary Disease (COPD) and Asthma GASTROINTESTINAL: Positive Obstructive Bowel and Obesity GENITOURINARY: Negative Renal Disease ENDOCRINE: Positive Diabetes Mellitus Type 2; Negative Diabetes Mellitus Type 1 HEMATOLOGIC: Negative Sickle Cell Disease Surgical History SURGICAL: Positive Abdominal Surgery Social History SMOKING STATUS: Never smoker SECOND HAND EXPOSURE: No ED Exam Narrative Physical exam: [General: Morbid obesity not in any acute distress Head normocephalic HEENT: Within acceptable limits Neck is supple nontender Chest equal chest rise nontender to palpation Respiratory: Clear to auscultation no wheezes crackles or rubs CV: Rate rhythm is regular no murmurs rubs or clicks Abdomen is distended secondary to body habitus soft nontender no masses positive bowel sounds all 4 quadrants Back: No CVA tenderness no spinous process tenderness from cervical spine thoracic and lumbar spine Skin: 3 triangulated less than 1 mm puncture wounds that are closed to the medial aspect of the tuft of the second digit. No surrounding erythema or edema cap refill less than 2 seconds neurosensory intact no streaking in the dorsum of the hand wrist forearm or axilla. Otherwise skin is intact no petechiae rash induration ulceration or crepitus Extremities: Moving all extremity against resistance cap refill less than 2 seconds neurosensory intact Neuro: Awake alert oriented x3 Glascow coma 15 no focal deficits] Course Quality Measures none Vital Signs Vital signs: Vital Signs Temperature 98.8 F 12/13/24 12:22 Pulse Rate 89 12/13/24 12:22 Respiratory Rate 18 12/13/24 12:22 Blood Pressure 150/79 H 12/13/24 12:22 Pulse Oximetry (%) 95 12/13/24 12:22 Oxygen Delivery Method Room Air 12/13/24 12:22 Discharge Plan Plan Patient Disposition: HOME (Self Care) Patient condition on transfer: Stable Prescriptions/Referrals Prescriptions/Med Rec: New cephalexin 500 mg capsule 500 mg PO BID Qty: 14 0RF meloxicam 7.5 mg tablet 7.5 mg PO QDAY Qty: 10 0RF No Action omega-3 fatty acids 1,000 mg capsule 1,000 mg PO QDAY Qty: 90 0RF insulin glargine U-300 conc 300 unit/mL (3 mL) insulin pen 35 unit subcut .COMPLEX 30 Days Qty: 6 5RF Rx Instructions: 35 units subcutaneously bid; pregabalin 50 mg capsule 50 mg PO BID Jardiance 25 mg tablet 25 mg PO QAM Qty: 90 0RF aspirin 81 mg tablet 81 mg PO QDAY Qty: 90 0RF Trelegy Ellipta 100-62.5-25 mcg blister with device 1 inh inhalation QDAY Qty: 28 3RF lisinopril 40 mg tablet 40 mg PO QDAY Qty: 90 0RF albuterol sulfate 90 mcg/actuation HFA aerosol inhaler 2 puff inhalation Q6H MDD 4 PRN (Reason: bronchospasm) Qty: 8.5 3RF (DME) FreeStyle Fausto 3 [place] Misc See Rx Instructions .Route Qty: 1 0RF Rx Instructions: As directed (DME) FreeStyle Fausto 3 Sensor Device See Rx Instructions .Route Qty: 2 3RF Rx Instructions: As directed ergocalciferol (vitamin D2) 1,250 mcg (50,000 unit) capsule 1,250 mcg PO QWEEK Mounjaro 5 mg/0.5 mL pen injector 5 mg subcut QWEEK 28 Days Qty: 2 0RF docusate sodium [Colace] 100 mg capsule 100 mg PO QDAY PRN (Reason: constipation) Qty: 30 0RF metformin 1,000 mg tablet 1,000 mg PO BID 90 Days Qty: 180 0RF fenofibrate 160 mg tablet 160 mg PO QDAY Qty: 90 0RF insulin lispro 100 unit/mL insulin pen 7 unit subcut TID Qty: 15 2RF hydrochlorothiazide 25 mg tablet 25 mg PO QDAY Qty: 90 0RF famotidine 20 mg tablet 20 mg PO BID Qty: 90 0RF Referrals: Jose Calzada MD [Physician] - In 1 week Problem List Clinical Impression: Puncture wound Patient/Caregiver Discharge Instructions Other Activity Instructions:: Do not take the antibiotics until signs of infection which include redness warmth to touch or pus coming to the site if there is any streaking from the puncture site into your finger or hand or wrist start the antibiotics immediately. Take the other medication prescribed for temporary pain relief. Education Materials: ED Puncture Wound (General) Print Language: Thai Stand Alone Forms: Nancy Award Info., Patient Portal Info Letter, Work/School Release PA/MONUMENT ERECTOR Supervising Physician PA/MONUMENT ERECTOR Supervising Physician: Jan Urena ENP MDM Clinical Information Provided by patient Medical Records Reviewed [facility] Meds/Rx Considered, not Ordered None Labs/Rad/Tests considered, not Ordered None Chronic Illness/Social Conditions Add or document further as needed: Morbid obesity diabetes hypertension hyperlipidemia EKG EKG not done Lab Interpretation Labs: none Imaging Imaging interpretation: none Medication Administration(s) none Diagnosis Differential diagnosis: Puncture wound insect bite finger abrasion Dispositon Disposition: Discharge Home
== END 2024-12-13 12:50 | disposition home or self-care (01) ==
LOC: SERX 12:38
PROVIDERS: Emergency Provider Emergency Medicine; PCP Nurse Practitioner Family
DX: S61.231A Puncture wound without foreign body of left index finger without damage to nail, initial encounter (principal); W53.01XA Bitten by mouse, initial encounter
CPT/HCPCS: 99281

== ENCOUNTER → 2024-12-20 | Outpatient (BNVA) | payer MEDICAID, SELFPAY | END | disposition home or self-care (01) | PROVIDERS: PCP Nurse Practitioner Primary Care; Referring Provider Nurse Practitioner Primary Care; Visit Provider Nurse Practitioner Primary Care | DX: N39.0 Urinary tract infection, site not specified (principal); E11.9 Type 2 diabetes mellitus without complications; E66.9 Obesity, unspecified; Z68.42 Body mass index [BMI] 45.0-49.9, adult | CPT/HCPCS: 81001; 96372; 99215; A4216; J0696 ==

== ENCOUNTER → 2024-12-23 | Outpatient (BNVA) | payer MEDICAID, SELFPAY | END | disposition home or self-care (01) | PROVIDERS: PCP Nurse Practitioner Family; Referring Provider Nurse Practitioner Family; Visit Provider Nurse Practitioner Family | DX: Z71.2 Person consulting for explanation of examination or test findings (principal); M50.20 Other cervical disc displacement, unspecified cervical region; Z79.4 Long term (current) use of insulin; E66.01 Morbid (severe) obesity due to excess calories; M48.02 Spinal stenosis, cervical region; M47.812 Spondylosis without myelopathy or radiculopathy, cervical region; M51.362 Other intervertebral disc degeneration, lumbar region with discogenic back pain and lower extremity pain; R60.9 Edema, unspecified; E11.42 Type 2 diabetes mellitus with diabetic polyneuropathy | CPT/HCPCS: 99213; 99214 ==

== ENCOUNTER → 2024-12-26 | Outpatient (BNVA) | payer MEDICAID, SELFPAY | END | disposition home or self-care (01) | PROVIDERS: PCP Nurse Practitioner Family; Referring Provider Nurse Practitioner Family; Visit Provider Nurse Practitioner Family | DX: Z71.2 Person consulting for explanation of examination or test findings (principal); N39.0 Urinary tract infection, site not specified | CPT/HCPCS: 99213 ==

== ENCOUNTER → 2024-12-30 | Outpatient (BNVA) | payer MEDICAID, SELFPAY | END | disposition home or self-care (01) | PROVIDERS: PCP Nurse Practitioner Family; Referring Provider Nurse Practitioner Family; Visit Provider Nurse Practitioner Family | DX: Z71.2 Person consulting for explanation of examination or test findings (principal); N39.0 Urinary tract infection, site not specified | CPT/HCPCS: 99212; G0463 ==

== ENCOUNTER → 2025-01-31 | Outpatient (BNVA) | payer MEDICAID, SELFPAY | END | disposition home or self-care (01) | PROVIDERS: PCP Nurse Practitioner Family; Referring Provider Nurse Practitioner Family; Visit Provider Nurse Practitioner Family | DX: E11.9 Type 2 diabetes mellitus without complications (principal); Z79.4 Long term (current) use of insulin; Z23 Encounter for immunization | CPT/HCPCS: 90471; 90686; 99214 ==

== ENCOUNTER → 2025-02-10 | Outpatient (BNVA) | payer MEDICAID, SELFPAY | END | disposition home or self-care (01) | PROVIDERS: PCP Nurse Practitioner Family; Referring Provider Nurse Practitioner Family; Visit Provider Nurse Practitioner Family | DX: E66.01 Morbid (severe) obesity due to excess calories (principal); I10 Essential (primary) hypertension; E78.5 Hyperlipidemia, unspecified; E11.69 Type 2 diabetes mellitus with other specified complication ==

== ENCOUNTER → 2025-02-24 | Outpatient (BNVA) | payer MEDICAID, SELFPAY | END | disposition home or self-care (01) | PROVIDERS: PCP Internal Medicine; Referring Provider Internal Medicine; Visit Provider Internal Medicine | DX: R80.9 Proteinuria, unspecified (principal); E55.9 Vitamin D deficiency, unspecified; E78.5 Hyperlipidemia, unspecified; E11.9 Type 2 diabetes mellitus without complications; E66.9 Obesity, unspecified; K42.0 Umbilical hernia with obstruction, without gangrene; Z68.42 Body mass index [BMI] 45.0-49.9, adult | CPT/HCPCS: 81001; 99214 ==

== ENCOUNTER → 2025-02-28 | Outpatient (BNVA) | payer MEDICAID, SELFPAY | END | disposition home or self-care (01) | PROVIDERS: PCP Nurse Practitioner Family; Referring Provider Nurse Practitioner Family; Visit Provider Nurse Practitioner Family | DX: E11.9 Type 2 diabetes mellitus without complications (principal); E66.01 Morbid (severe) obesity due to excess calories; Z79.4 Long term (current) use of insulin; G47.33 Obstructive sleep apnea (adult) (pediatric); Z68.42 Body mass index [BMI] 45.0-49.9, adult | CPT/HCPCS: 99213; 99214 ==

== ENCOUNTER → 2025-03-28 | Outpatient (BNVA) | payer MEDICAID, SELFPAY | END | disposition home or self-care (01) | PROVIDERS: PCP Nurse Practitioner Family; Referring Provider Nurse Practitioner Family; Visit Provider Nurse Practitioner Family | DX: E11.9 Type 2 diabetes mellitus without complications (principal); Z79.4 Long term (current) use of insulin; E66.9 Obesity, unspecified; Z68.42 Body mass index [BMI] 45.0-49.9, adult | CPT/HCPCS: 99213 ==